=== PATIENT | female | born 1965 | race African-American/Black ===

== ENCOUNTER 2019-01-02 19:53 | Emergency (ER) | payer BC | END 2019-01-02 21:00 | disposition left against medical advice (07) | LOC: ER 20:59 | DX: Z53.21 Procedure and treatment not carried out due to patient leaving prior to being seen by health care provider (principal) ==

== ENCOUNTER 2022-05-03 06:30 | Inpatient (IN) | payer BC ==
[2022-05-03] VITALS (29 sets, daily range): BP systolic 78–110; BP diastolic 45–69
[~2022-05-03] VITALS: Ht 170.2 cm; Wt 64.9 kg
[2022-05-03] MEDS ORDERED: SODIUM CHLORIDE 0.9% 1,000 ML IV ONE (07:00)
[2022-05-03 08:03] LABS: HEMATOCRIT. 28.6 % (36.0-48.0); HEMOGLOBIN. 8.6 g/dL (12.0-16.0); MEAN CORPUSCULAR HEMOGLOBIN 25.5 pg (28.0-32.0); MEAN CORPUSCULAR VOLUME 84.6 fL (81.0-99.0); MEAN PLATELET VOLUME 9.5 fl (7.4-10.4); PLATELET 80 x1000/uL (130-400); RED BLOOD CELL COUNT 3.38 mill/uL (4.2-5.4); RED CELL DISTRIBUTION WIDTH 27.1 % (11.6-14.6)
[2022-05-03 08:05] LABS: CHLORIDE 115 mEq/L (98-107)
[2022-05-03] MEDS ORDERED: SODIUM CHLORIDE 0.9% 1000ML BAG (SEPSIS BOLUS) IV ONE (08:30)
[2022-05-03] MEDS ORDERED: VANCOMYCIN 1G PREMIX 200 ML IV ONE (08:30)
[2022-05-03] MEDS ORDERED: PIPERACILLIN/TAZ 3.375G PREMIX 50 ML IV ONE (08:30)
[2022-05-03] MEDS ORDERED: DEXTROSE 50% WATER 50ML SYRINGE IV ONE (08:30)
[2022-05-03 08:35] LABS: INR 1.4; PROTHROMBIN TIME 14.8 sec (9.6-11.0)
[2022-05-03 08:42] LABS: NUCLEATED RED BLOOD CELLS 12 /100 WBC; PLATELET ESTIMATE DECREASED
[2022-05-03] MEDS ORDERED: LIDOCAINE HCL/PF 1% 10 MG/ML 5ML VIAL ONE (09:45)
[2022-05-03] MEDS ORDERED: DOCUSATE SODIUM 100MG CAPSULE PO PRN (10:00)
[2022-05-03] MEDS ORDERED: HYDROCODONE/ACETAMINOPHEN 5/325MG TABLET PO PRN (10:00)
[2022-05-03] MEDS ORDERED: ENOXAPARIN 40MG/0.4ML SYR SUBCUT SCH (10:00)
[2022-05-03] MEDS ORDERED: MORPHINE SULFATE 2 MG/ML CPJ (NOT FOR IM USE) IV PRN (10:00)
[2022-05-03] MEDS ORDERED: NA PHOS,M-B/NA PHOS,DI-BA ENEMA 118ML PR PRN (10:00)
[2022-05-03] MEDS ORDERED: CLONIDINE 0.1MG TABLET PO PRN (10:00)
[2022-05-03] MEDS ORDERED: ACETAMINOPHEN 325MG TABLET PO PRN (10:00)
[2022-05-03] MEDS ORDERED: GUAIFENESIN 200MG/10ML SUGAR FREE UDC PO PRN (10:00)
[2022-05-03] MEDS ORDERED: MAGNESIUM/ALUMINUM HYDROXIDE/SIMETHICONE 30ML UDC PO PRN (10:00)
[2022-05-03] MEDS ORDERED: DIPHENHYDRAMINE 50MG/ML VIAL IV PRN (10:00)
[2022-05-03] MEDS ORDERED: IPRATROPIUM/ALBUTEROL 0.5-3(2.5)MG/3ML NEB NEB PRN (10:00)
[2022-05-03] MEDS ORDERED: NOREPINEPHRINE 8MG/250ML PMX 250 ML IV STA (11:16)
[2022-05-03 11:59] LABS: BG BASE EXCESS -8.2 mmol/L (-2.0-2.0); BG CARBOXYHEMOGLOBIN 0.9 % (0.5-1.5); BG DEOXYHEMOGLOBIN 2.3 % (0.0-5.0); BG FRACTION INSPIRED OXYGEN 21; BG HCO3 ACT 16.8 mmol/L (22.0-26.0); BG METHEMOGLOBIN 0.3 % (0.0-1.5); BG OXYGEN SATURATION 97.7 % (92.0-98.5); BG OXYHEMOGLOBIN 96.5 % (94.0-97.0); BG PCO2 31.6 mmHg (35.0-45.0); BG PH 7.343 (7.350-7.450); BG PO2 120.7 mmHg (75.0-100.0); BG SAMPLE SITE LEFT BRACHIAL; BG TOTAL HEMOGLOBIN 6.3 g/dL (12.0-18.0); BG VENT MODE ROOM AIR
[2022-05-03 13:05] LABS: CLARITY URINE CLEAR (CLEAR); COLOR URINE YELLOW (YELLOW); KETONES URINE NEGATIVE (NEGATIVE); LEUKOCYTE ESTERASE URINE NEGATIVE (NEGATIVE); NITRITE URINE NEGATIVE (NEGATIVE); OCCULT BLOOD URINE NEGATIVE (NEGATIVE); PROTEIN URINE 1+ (NEGATIVE); SPECIFIC GRAVITY URINE 1.013 (1.005-1.030); UROBILINOGEN URINE 0.2 E.U./dL (0.2-1.0)
[2022-05-03] MEDS ORDERED: PIPERACILLIN/TAZOBACTAM 3.375 G in DEXTROSE 5% WATER 50 ML IV SCH (15:00)
[2022-05-03] MEDS: SODIUM BICARBONATE 100 MEQ in DEXTROSE 5% WATER 1,000 ML IV SCH (15:52)
[2022-05-03] MEDS: DEXT 5%/0.45% NACL 1000ML 1,000 ML IV SCH (15:52)
[2022-05-03] MEDS: PIPERACILLIN/TAZOBACTAM 3.375 G in DEXTROSE 5% WATER 50 ML IV SCH (15:52)
[2022-05-03] MEDS ORDERED: NALOXONE HCL 0.4MG/ML VIAL IV PRN (16:00)
[2022-05-03 16:48] LABS: TOTAL IRON BINDING CAPACITY 230 ug/dL (250-450)
[2022-05-03] MEDS: NOREPINEPHRINE 32 MG in DEXT 5% WATER 218 ML IV PRN (16:53)
[2022-05-03 18:24] LABS: FOLIC ACID (FOLATE) SERUM >20 ng/mL ng/mL (>5.38); VITAMIN B12 SERUM >2000 pg/mL pg/mL (211-911)
[2022-05-03 20:42] LABS: FERRITIN 822 ng/mL (10-291)
[2022-05-04] VITALS (91 sets, daily range): BP systolic 84–132; BP diastolic 52–83
[2022-05-04] MEDS: PIPERACILLIN/TAZOBACTAM 3.375 G in DEXTROSE 5% WATER 50 ML IV SCH ×4 (00:08→22:06)
[2022-05-04] MEDS: DEXT 5%/0.45% NACL 1000ML 1,000 ML IV SCH ×2 (03:42→23:15)
[2022-05-04 04:31] LABS: HEMATOCRIT. 22.2 % (36.0-48.0); MEAN CORPUSCULAR HEMOGLOBIN 26.1 pg (28.0-32.0); MEAN CORPUSCULAR VOLUME 83.1 fL (81.0-99.0); MEAN PLATELET VOLUME 8.8 fl (7.4-10.4); PLATELET 106 x1000/uL (130-400); RED BLOOD CELL COUNT 2.68 mill/uL (4.2-5.4); RED CELL DISTRIBUTION WIDTH 28.1 % (11.6-14.6)
[2022-05-04 04:36] LABS: CHLORIDE 116 mEq/L (98-107)
[2022-05-04 05:29] LABS: NUCLEATED RED BLOOD CELLS 3 /100 WBC
[2022-05-04 05:30] LABS: PLATELET ESTIMATE DECREASED
[2022-05-04 10:02] LABS: T4 FREE 0.91 ng/dL (0.76-1.46)
[2022-05-04] MEDS: METOCLOPRAMIDE HCL 10MG/2ML VIAL IV SCH ×3 (12:32→23:15)
[2022-05-04] MEDS: NOREPINEPHRINE 32 MG in DEXT 5% WATER 218 ML IV PRN (12:57)
[2022-05-04] MEDS: SODIUM BICARBONATE 100 MEQ in DEXTROSE 5% WATER 1,000 ML IV SCH (14:51)
[2022-05-04 15:08] LABS: CREATINE KINASE MB FRACTION 2.6 ng/mL (0.5-3.6)
[2022-05-04 23:21] LABS: HEMATOCRIT 26.3 % (36.0-48.0); HEMOGLOBIN 8.2 g/dL (12.0-16.0)
[2022-05-05] VITALS (99 sets, daily range): BP systolic 54–141; BP diastolic 29–91
[2022-05-05 05:12] LABS: HEMATOCRIT. 27.3 % (36.0-48.0); HEMOGLOBIN. 8.6 g/dL (12.0-16.0); MEAN CORPUSCULAR HEMOGLOBIN 26.1 pg (28.0-32.0); MEAN CORPUSCULAR VOLUME 82.4 fL (81.0-99.0); MEAN PLATELET VOLUME 8.5 fl (7.4-10.4); PLATELET 88 x1000/uL (130-400); RED BLOOD CELL COUNT 3.31 mill/uL (4.2-5.4); RED CELL DISTRIBUTION WIDTH 26.2 % (11.6-14.6)
[2022-05-05 05:54] LABS: CREATINE KINASE MB FRACTION 1.5 ng/mL (0.5-3.6)
[2022-05-05] MEDS: METOCLOPRAMIDE HCL 10MG/2ML VIAL IV SCH ×3 (06:00→18:00)
[2022-05-05] MEDS: PIPERACILLIN/TAZOBACTAM 3.375 G in DEXTROSE 5% WATER 50 ML IV SCH ×3 (06:05→22:14)
[2022-05-05] MEDS: MEGESTROL ACETATE 400 MG/10 ML UDC PO SCH (08:46)
[2022-05-05] MEDS: SODIUM BICARBONATE 100 MEQ in DEXTROSE 5% WATER 1,000 ML IV SCH ×2 (09:00→11:05)
[2022-05-05] MEDS: NOREPINEPHRINE 32 MG in DEXT 5% WATER 218 ML IV PRN (11:53)
[2022-05-05] MEDS: KCL 20MEQ/100ML PREMIX 100 ML IV SCH ×2 (11:53→13:42)
[2022-05-05 12:11] LABS: PLATELET ESTIMATE DECREASED
[2022-05-05] MEDS: DEXT 5%/0.45% NACL 1000ML 1,000 ML IV SCH (19:42)
[2022-05-06] VITALS (94 sets, daily range): BP systolic 53–143; BP diastolic 22–102
[2022-05-06] MEDS: METOCLOPRAMIDE HCL 10MG/2ML VIAL IV SCH ×4 (05:39→18:00)
[2022-05-06] MEDS: LEVOTHYROXINE SODIUM 88MCG TABLET PO SCH (05:39)
[2022-05-06] MEDS: PIPERACILLIN/TAZOBACTAM 3.375 G in DEXTROSE 5% WATER 50 ML IV SCH ×3 (05:39→21:30)
[2022-05-06 05:50] LABS: HEMATOCRIT. 30.3 % (36.0-48.0); HEMOGLOBIN. 9.5 g/dL (12.0-16.0); MEAN CORPUSCULAR HEMOGLOBIN 25.4 pg (28.0-32.0); MEAN CORPUSCULAR VOLUME 80.8 fL (81.0-99.0); MEAN PLATELET VOLUME 8.7 fl (7.4-10.4); PLATELET 77 x1000/uL (130-400); RED BLOOD CELL COUNT 3.75 mill/uL (4.2-5.4); RED CELL DISTRIBUTION WIDTH 25.7 % (11.6-14.6)
[2022-05-06] MEDS: NOREPINEPHRINE 32 MG in DEXT 5% WATER 218 ML IV PRN (08:08)
[2022-05-06] MEDS ORDERED: POTASSIUM CHLORIDE INJ 40 MEQ in DEXT 5% WATER 500 ML IV NR (09:00)
[2022-05-06] MEDS: SODIUM BICARBONATE 100 MEQ in DEXTROSE 5% WATER 1,000 ML IV SCH (09:19)
[2022-05-06] MEDS: MEGESTROL ACETATE 400 MG/10 ML UDC PO SCH (09:21)
[2022-05-06 10:16] LABS: PLATELET ESTIMATE DECREASED
[2022-05-06] MEDS: MIDODRINE HCL 5MG TABLET PO SCH ×2 (13:23→17:37)
[2022-05-06] MEDS ORDERED: MORPHINE SULFATE 2 MG/ML CPJ (NOT FOR IM USE) IV NR (14:22)
[2022-05-06] MEDS: FERROUS SULFATE 325MG TABLET PO SCH (17:37)
[2022-05-06] MEDS: DEXT 5%/0.45% NACL 1000ML 1,000 ML IV SCH (17:38)
[2022-05-06] MEDS: ONDANSETRON HCL 4MG/2ML INJ IV PRN (18:53)
[2022-05-07] VITALS (96 sets, daily range): BP systolic 64–117; BP diastolic 40–93
[2022-05-07] MEDS: METOCLOPRAMIDE HCL 10MG/2ML VIAL IV SCH ×5 (00:19→17:23)
[2022-05-07] MEDS: ONDANSETRON HCL 4MG/2ML INJ IV PRN (02:23)
[2022-05-07] MEDS: NOREPINEPHRINE 32 MG in DEXT 5% WATER 218 ML IV PRN ×2 (03:19→15:24)
[2022-05-07 05:49] LABS: HEMATOCRIT. 33.8 % (36.0-48.0); HEMOGLOBIN. 10.5 g/dL (12.0-16.0); MEAN CORPUSCULAR HEMOGLOBIN 25.2 pg (28.0-32.0); MEAN CORPUSCULAR VOLUME 80.9 fL (81.0-99.0); MEAN PLATELET VOLUME 8.6 fl (7.4-10.4); PLATELET 55 x1000/uL (130-400); RED BLOOD CELL COUNT 4.18 mill/uL (4.2-5.4); RED CELL DISTRIBUTION WIDTH 26.1 % (11.6-14.6)
[2022-05-07] MEDS: LEVOTHYROXINE SODIUM 88MCG TABLET PO SCH (06:04)
[2022-05-07] MEDS: PIPERACILLIN/TAZOBACTAM 3.375 G in DEXTROSE 5% WATER 50 ML IV SCH ×3 (06:04→21:33)
[2022-05-07] MEDS: SODIUM BICARBONATE 100 MEQ in DEXTROSE 5% WATER 1,000 ML IV SCH (06:36)
[2022-05-07] MEDS: MIDODRINE HCL 5MG TABLET PO SCH ×3 (07:59→12:36)
[2022-05-07] MEDS: MEGESTROL ACETATE 400 MG/10 ML UDC PO SCH ×2 (07:59→09:38)
[2022-05-07] MEDS: FERROUS SULFATE 325MG TABLET PO SCH ×3 (07:59→17:25)
[2022-05-07] MEDS ORDERED: LIDOCAINE HCL 1% 10 MG/ML 10ML VIAL ONE (08:09)
[2022-05-07 08:27] LABS: PLATELET ESTIMATE DECREASED
[2022-05-07 10:12] LABS: BG BASE EXCESS -5.3 mmol/L (-2.0-2.0); BG CARBOXYHEMOGLOBIN 0.3 % (0.5-1.5); BG DEOXYHEMOGLOBIN 2.1 % (0.0-5.0); BG HCO3 ACT 18.4 mmol/L (22.0-26.0); BG METHEMOGLOBIN 0.1 % (0.0-1.5); BG OXYGEN SATURATION 97.9 % (92.0-98.5); BG OXYHEMOGLOBIN 97.5 % (94.0-97.0); BG PCO2 29.6 mmHg (35.0-45.0); BG PH 7.412 (7.350-7.450); BG PO2 125.5 mmHg (75.0-100.0); BG SAMPLE SITE RIGHT RADIAL; BG TOTAL HEMOGLOBIN 9.9 g/dL (12.0-18.0); BG VENT MODE ROOM AIR
[2022-05-07] MEDS: DEXT 5%/0.45% NACL 1000ML 1,000 ML IV SCH (10:40)
[2022-05-07] MEDS ORDERED: MIDODRINE HCL 5MG TABLET PO SCH (17:00)
[2022-05-08] VITALS (84 sets, daily range): BP systolic 63–131; BP diastolic 5–95
[2022-05-08] MEDS: DEXT 5%/0.45% NACL 1000ML 1,000 ML IV SCH ×2 (00:13→14:05)
[2022-05-08] MEDS: NOREPINEPHRINE 32 MG in DEXT 5% WATER 218 ML IV PRN ×2 (00:16→16:03)
[2022-05-08 05:11] LABS: HEMATOCRIT. 34.7 % (36.0-48.0); HEMOGLOBIN. 10.9 g/dL (12.0-16.0); MEAN CORPUSCULAR HEMOGLOBIN 25.7 pg (28.0-32.0); MEAN CORPUSCULAR VOLUME 81.6 fL (81.0-99.0); MEAN PLATELET VOLUME 8.2 fl (7.4-10.4); RED BLOOD CELL COUNT 4.25 mill/uL (4.2-5.4); RED CELL DISTRIBUTION WIDTH 25.3 % (11.6-14.6)
[2022-05-08 05:41] LABS: PLATELET 36 x1000/uL (130-400)
[2022-05-08] MEDS: PIPERACILLIN/TAZOBACTAM 3.375 G in DEXTROSE 5% WATER 50 ML IV SCH ×2 (06:00→14:04)
[2022-05-08] MEDS: METOCLOPRAMIDE HCL 10MG/2ML VIAL IV SCH ×5 (06:02→23:45)
[2022-05-08] MEDS: LEVOTHYROXINE SODIUM 88MCG TABLET PO SCH (06:02)
[2022-05-08 08:49] LABS: PLATELET ESTIMATE MARKEDLY DECREASED
[2022-05-08] MEDS: FERROUS SULFATE 325MG TABLET PO SCH ×2 (08:55→16:40)
[2022-05-08] MEDS: LACTOBACILLUS GG CAPSULE PO SCH (08:55)
[2022-05-08] MEDS: FOLIC ACID 1MG TABLET PO SCH (08:55)
[2022-05-08] MEDS: MIDODRINE HCL 5MG TABLET PO SCH ×3 (08:55→16:40)
[2022-05-08] MEDS: THIAMINE HCL 100MG TABLET PO SCH (08:56)
[2022-05-08 17:21] LABS: HEMATOCRIT. 36.7 % (36.0-48.0); HEMOGLOBIN. 11.3 g/dL (12.0-16.0); MEAN CORPUSCULAR HEMOGLOBIN 25.4 pg (28.0-32.0); MEAN CORPUSCULAR VOLUME 82.8 fL (81.0-99.0); MEAN PLATELET VOLUME 8.3 fl (7.4-10.4); RED BLOOD CELL COUNT 4.43 mill/uL (4.2-5.4); RED CELL DISTRIBUTION WIDTH 25.9 % (11.6-14.6)
[2022-05-08 17:37] LABS: PLATELET 27 x1000/uL (130-400)
[2022-05-08] MEDS: MORPHINE SULFATE 2 MG/ML CPJ (NOT FOR IM USE) IV PRN (18:59)
[2022-05-09] VITALS (73 sets, daily range): BP systolic 82–120; BP diastolic 23–89
[2022-05-09 00:41] LABS: PLATELET ESTIMATE DECREASED
[2022-05-09] MEDS: LEVOTHYROXINE SODIUM 88MCG TABLET PO SCH (05:33)
[2022-05-09] MEDS: METOCLOPRAMIDE HCL 10MG/2ML VIAL IV SCH ×3 (05:35→17:43)
[2022-05-09 05:37] LABS: BASOPHILS % 0.1 % (0.0-2.0); EOSINOPHILS % 0.1 % (0.0-5.0); HEMATOCRIT. 34.1 % (36.0-48.0); HEMOGLOBIN. 10.6 g/dL (12.0-16.0); LYMPHOCYTES % 7.3 % (20.0-50.0); MEAN CORPUSCULAR HEMOGLOBIN 25.4 pg (28.0-32.0); MEAN CORPUSCULAR VOLUME 81.6 fL (81.0-99.0); MEAN PLATELET VOLUME 9.2 fl (7.4-10.4); MONOCYTES % 5.6 % (2.0-8.0); NEUTROPHILS % 86.9 % (40.0-76.0); RED BLOOD CELL COUNT 4.18 mill/uL (4.2-5.4); RED CELL DISTRIBUTION WIDTH 24.8 % (11.6-14.6)
[2022-05-09] MEDS: NOREPINEPHRINE 32 MG in DEXT 5% WATER 218 ML IV PRN ×2 (05:38→18:26)
[2022-05-09 06:10] LABS: PLATELET 31 x1000/uL (130-400)
[2022-05-09] MEDS: DEXT 5%/0.45% NACL 1000ML 1,000 ML IV SCH ×2 (08:05→21:00)
[2022-05-09] MEDS: MIDODRINE HCL 5MG TABLET PO SCH ×3 (09:00→17:24)
[2022-05-09] MEDS: LACTOBACILLUS GG CAPSULE PO SCH (09:00)
[2022-05-09] MEDS: THIAMINE HCL 100MG TABLET PO SCH (09:00)
[2022-05-09] MEDS: FERROUS SULFATE 325MG TABLET PO SCH ×2 (09:00→17:28)
[2022-05-09] MEDS: FOLIC ACID 1MG TABLET PO SCH (09:00)
[2022-05-09] MEDS ORDERED: NALOXONE HCL 0.4MG/ML VIAL IV PRN (09:45)
[2022-05-09] MEDS ORDERED: POTASSIUM CHLORIDE 20MEQ TABLET SR PO NR (09:45)
[2022-05-09] MEDS: FLUDROCORTISONE ACETATE 0.1MG TABLET PO SCH (12:20)
[2022-05-09] MEDS ORDERED: FLUCONAZOLE 200 MG/100ML BAG 100 ML IV SCH (13:00)
[2022-05-09] MEDS: ONDANSETRON HCL 4MG/2ML INJ IV PRN (17:29)
[2022-05-10] VITALS (108 sets, daily range): BP systolic 74–120; BP diastolic 39–86
[2022-05-10] MEDS: METOCLOPRAMIDE HCL 10MG/2ML VIAL IV SCH ×4 (01:02→17:12)
[2022-05-10] MEDS: DEXT 5%/0.45% NACL 1000ML 1,000 ML IV SCH ×2 (05:52→22:00)
[2022-05-10 06:40] LABS: HEMOGLOBIN. 8.6 g/dL (12.0-16.0); MEAN CORPUSCULAR HEMOGLOBIN 25.7 pg (28.0-32.0); MEAN CORPUSCULAR VOLUME 80.7 fL (81.0-99.0); MEAN PLATELET VOLUME 9.4 fl (7.4-10.4); RED BLOOD CELL COUNT 3.34 mill/uL (4.2-5.4); RED CELL DISTRIBUTION WIDTH 24.1 % (11.6-14.6)
[2022-05-10 07:00] LABS: CHLORIDE 107 mEq/L (98-107)
[2022-05-10 07:11] LABS: PLATELET 27 x1000/uL (130-400)
[2022-05-10] MEDS ORDERED: IOHEXOL-300 50 ML BOTTLE IV ONE (08:55)
[2022-05-10] MEDS ORDERED: LIDOCAINE HCL 1% 10 MG/ML 10ML VIAL ONE (08:55)
[2022-05-10] MEDS ORDERED: IOHEXOL-300 100 ML BOTTLE ONE (08:56)
[2022-05-10] MEDS: MIDODRINE HCL 5MG TABLET PO SCH ×3 (09:00→17:12)
[2022-05-10] MEDS: NOREPINEPHRINE 32 MG in DEXT 5% WATER 218 ML IV PRN (09:11)
[2022-05-10] MEDS ORDERED: POTASSIUM CHLORIDE 20MEQ TABLET SR PO NR (09:15)
[2022-05-10 09:40] LABS: PLATELET ESTIMATE MARKEDLY DECREASED
[2022-05-10] MEDS: LACTOBACILLUS GG CAPSULE PO SCH (11:41)
[2022-05-10] MEDS: THIAMINE HCL 100MG TABLET PO SCH (11:41)
[2022-05-10] MEDS: FOLIC ACID 1MG TABLET PO SCH (11:41)
[2022-05-10] MEDS: FERROUS SULFATE 325MG TABLET PO SCH ×2 (11:41→17:12)
[2022-05-10] MEDS: FLUDROCORTISONE ACETATE 0.1MG TABLET PO SCH (11:41)
[2022-05-10] MEDS: LEVOTHYROXINE SODIUM 88MCG TABLET PO SCH (11:41)
[2022-05-10] MEDS: FLUCONAZOLE 100 MG/50ML BAG 50 ML IV SCH (13:37)
[2022-05-10] MEDS: PYRIDOSTIGMINE BROMIDE 60MG TABLET PO SCH (17:12)
[2022-05-10] MEDS: MORPHINE SULFATE 2 MG/ML CPJ (NOT FOR IM USE) IV PRN ×2 (17:30→22:20)
[2022-05-11] VITALS (82 sets, daily range): BP systolic 60–126; BP diastolic 42–77
[2022-05-11] MEDS: METOCLOPRAMIDE HCL 10MG/2ML VIAL IV SCH ×4 (00:16→17:52)
[2022-05-11] MEDS: NOREPINEPHRINE 32 MG in DEXT 5% WATER 218 ML IV PRN (04:30)
[2022-05-11 05:24] LABS: BASOPHILS % 0.3 % (0.0-2.0); HEMATOCRIT. 30.6 % (36.0-48.0); HEMOGLOBIN. 9.7 g/dL (12.0-16.0); LYMPHOCYTES % 12.2 % (20.0-50.0); MEAN CORPUSCULAR HEMOGLOBIN 25.6 pg (28.0-32.0); MEAN CORPUSCULAR VOLUME 81.2 fL (81.0-99.0); MEAN PLATELET VOLUME 9.1 fl (7.4-10.4); MONOCYTES % 2.9 % (2.0-8.0); NEUTROPHILS % 84.6 % (40.0-76.0); RED BLOOD CELL COUNT 3.77 mill/uL (4.2-5.4); RED CELL DISTRIBUTION WIDTH 24.8 % (11.6-14.6)
[2022-05-11 05:41] LABS: CHLORIDE 108 mEq/L (98-107)
[2022-05-11 05:59] LABS: PLATELET 42 x1000/uL (130-400)
[2022-05-11] MEDS: LEVOTHYROXINE SODIUM 88MCG TABLET PO SCH (06:08)
[2022-05-11] MEDS: MORPHINE SULFATE 2 MG/ML CPJ (NOT FOR IM USE) IV PRN (06:12)
[2022-05-11] MEDS ORDERED: POTASSIUM CHLORIDE INJ 40 MEQ in DEXT 5% WATER 250 ML IV ONE (08:00)
[2022-05-11] MEDS: DEXT 5%/0.45% NACL 1000ML 1,000 ML IV SCH ×2 (08:57→20:33)
[2022-05-11] MEDS: FERROUS SULFATE 325MG TABLET PO SCH ×2 (08:57→17:01)
[2022-05-11] MEDS: FOLIC ACID 1MG TABLET PO SCH (08:58)
[2022-05-11] MEDS: THIAMINE HCL 100MG TABLET PO SCH (08:58)
[2022-05-11] MEDS: PYRIDOSTIGMINE BROMIDE 60MG TABLET PO SCH ×2 (08:58→17:01)
[2022-05-11] MEDS: MIDODRINE HCL 5MG TABLET PO SCH ×3 (08:58→17:01)
[2022-05-11] MEDS: FLUDROCORTISONE ACETATE 0.1MG TABLET PO SCH ×2 (08:58→20:32)
[2022-05-11] MEDS: LACTOBACILLUS GG CAPSULE PO SCH (08:58)
[2022-05-11] MEDS: FLUCONAZOLE 100 MG/50ML BAG 50 ML IV SCH (13:33)
[2022-05-11] MEDS ORDERED: FLUDROCORTISONE ACETATE 0.1MG TABLET PO SCH (20:15)
[2022-05-12] VITALS (71 sets, daily range): BP systolic 74–130; BP diastolic 21–81
[2022-05-12] MEDS: NOREPINEPHRINE 32 MG in DEXT 5% WATER 218 ML IV PRN ×2 (02:06→23:47)
[2022-05-12] MEDS: METOCLOPRAMIDE HCL 10MG/2ML VIAL IV SCH ×5 (06:00→23:46)
[2022-05-12] MEDS: LEVOTHYROXINE SODIUM 88MCG TABLET PO SCH (06:29)
[2022-05-12] MEDS: LACTOBACILLUS GG CAPSULE PO SCH (10:09)
[2022-05-12] MEDS: PYRIDOSTIGMINE BROMIDE 60MG TABLET PO SCH ×2 (10:09→17:02)
[2022-05-12] MEDS: FERROUS SULFATE 325MG TABLET PO SCH ×2 (10:09→17:02)
[2022-05-12] MEDS: THIAMINE HCL 100MG TABLET PO SCH (10:09)
[2022-05-12] MEDS: FLUDROCORTISONE ACETATE 0.1MG TABLET PO SCH ×2 (10:10→17:02)
[2022-05-12] MEDS: MIDODRINE HCL 5MG TABLET PO SCH ×3 (10:10→17:03)
[2022-05-12] MEDS: FOLIC ACID 1MG TABLET PO SCH (10:11)
[2022-05-12] MEDS: DEXT 5%/0.45% NACL 1000ML 1,000 ML IV SCH ×2 (11:16→22:34)
[2022-05-12] MEDS: FLUCONAZOLE 100 MG/50ML BAG 50 ML IV SCH (13:31)
[2022-05-12] MEDS: CEFEPIME 1,000 MG in DEXTROSE 5% WATER 50 ML IV SCH (17:31)
[2022-05-13] VITALS (89 sets, daily range): BP systolic 73–137; BP diastolic 49–86
[2022-05-13 05:42] LABS: HEMATOCRIT. 27.4 % (36.0-48.0); HEMOGLOBIN. 8.7 g/dL (12.0-16.0); MEAN CORPUSCULAR HEMOGLOBIN 25.8 pg (28.0-32.0); MEAN CORPUSCULAR VOLUME 81.3 fL (81.0-99.0); MEAN PLATELET VOLUME 9.6 fl (7.4-10.4); PLATELET 60 x1000/uL (130-400); RED BLOOD CELL COUNT 3.37 mill/uL (4.2-5.4); RED CELL DISTRIBUTION WIDTH 24.6 % (11.6-14.6)
[2022-05-13] MEDS: LEVOTHYROXINE SODIUM 88MCG TABLET PO SCH (06:27)
[2022-05-13 06:28] LABS: CHLORIDE 109 mEq/L (98-107)
[2022-05-13] MEDS: CEFEPIME 1,000 MG in DEXTROSE 5% WATER 50 ML IV SCH (06:28)
[2022-05-13] MEDS: METOCLOPRAMIDE HCL 10MG/2ML VIAL IV SCH ×3 (06:28→17:26)
[2022-05-13] MEDS ORDERED: POTASSIUM CHLORIDE 20MEQ/PACKET PO NR (06:30)
[2022-05-13 06:42] LABS: T4 FREE 0.99 ng/dL (0.76-1.46)
[2022-05-13] MEDS: THIAMINE HCL 100MG TABLET PO SCH (09:54)
[2022-05-13] MEDS: FOLIC ACID 1MG TABLET PO SCH (09:54)
[2022-05-13] MEDS: MIDODRINE HCL 5MG TABLET PO SCH ×3 (09:54→16:03)
[2022-05-13] MEDS: FLUDROCORTISONE ACETATE 0.1MG TABLET PO SCH ×2 (09:54→16:02)
[2022-05-13] MEDS: FERROUS SULFATE 325MG TABLET PO SCH ×2 (09:54→16:03)
[2022-05-13] MEDS: PYRIDOSTIGMINE BROMIDE 60MG TABLET PO SCH ×2 (09:56→16:03)
[2022-05-13 10:02] LABS: PLATELET ESTIMATE MARKEDLY DECREASED
[2022-05-13] MEDS: LACTOBACILLUS GG CAPSULE PO SCH (10:24)
[2022-05-13] MEDS: MORPHINE SULFATE 2 MG/ML CPJ (NOT FOR IM USE) IV PRN (11:50)
[2022-05-13] MEDS: DEXT 5%/0.45% NACL 1000ML 1,000 ML IV SCH (12:02)
[2022-05-13] MEDS: FLUCONAZOLE 100 MG/50ML BAG 50 ML IV SCH (13:22)
[2022-05-13] MEDS: NOREPINEPHRINE 32 MG in DEXT 5% WATER 218 ML IV PRN (15:16)
[2022-05-13] MEDS: MEROPENEM 1,000 MG in SODIUM CHLORIDE 0.9% 100 ML IV SCH (16:02)
[2022-05-13] MEDS: VANCOMYCIN 750MG PREMIX 150 ML IV SCH ×2 (16:33→22:05)
[2022-05-13] MEDS: MICAFUNGIN 100 MG in SODIUM CHLORIDE 0.9% 100 ML IV SCH (16:34)
[2022-05-14] VITALS (57 sets, daily range): BP systolic 81–133; BP diastolic 37–87
[2022-05-14] MEDS: METOCLOPRAMIDE HCL 10MG/2ML VIAL IV SCH ×5 (00:27→23:35)
[2022-05-14] MEDS: DEXT 5%/0.45% NACL 1000ML 1,000 ML IV SCH ×2 (03:05→21:33)
[2022-05-14 06:16] LABS: HEMATOCRIT. 28.8 % (36.0-48.0); MEAN CORPUSCULAR HEMOGLOBIN 26.3 pg (28.0-32.0); MEAN CORPUSCULAR VOLUME 84.3 fL (81.0-99.0); PLATELET 80 x1000/uL (130-400); RED BLOOD CELL COUNT 3.41 mill/uL (4.2-5.4); RED CELL DISTRIBUTION WIDTH 24.5 % (11.6-14.6)
[2022-05-14] MEDS: MEROPENEM 1,000 MG in SODIUM CHLORIDE 0.9% 100 ML IV SCH (06:24)
[2022-05-14] MEDS: LEVOTHYROXINE SODIUM 88MCG TABLET PO SCH (06:24)
[2022-05-14] MEDS: VANCOMYCIN 750MG PREMIX 150 ML IV SCH ×3 (06:24→21:32)
[2022-05-14] MEDS: THIAMINE HCL 100MG TABLET PO SCH (09:00)
[2022-05-14] MEDS: MIDODRINE HCL 5MG TABLET PO SCH ×3 (09:00→17:04)
[2022-05-14] MEDS: FLUDROCORTISONE ACETATE 0.1MG TABLET PO SCH ×2 (09:00→17:04)
[2022-05-14] MEDS: PYRIDOSTIGMINE BROMIDE 60MG TABLET PO SCH ×2 (09:00→17:04)
[2022-05-14] MEDS: FOLIC ACID 1MG TABLET PO SCH (09:00)
[2022-05-14] MEDS: LACTOBACILLUS GG CAPSULE PO SCH (09:00)
[2022-05-14] MEDS: FERROUS SULFATE 325MG TABLET PO SCH ×2 (09:00→17:04)
[2022-05-14 09:37] LABS: PLATELET ESTIMATE DECREASED
[2022-05-14 10:22] LABS: CHLORIDE 113 mEq/L (98-107)
[2022-05-14 10:24] LABS: PHOSPHORUS 1.8 mg/dL (2.5-4.9)
[2022-05-14] MEDS: MICAFUNGIN 100 MG in SODIUM CHLORIDE 0.9% 100 ML IV SCH (16:00)
[2022-05-14] MEDS: MEROPENEM 2,000 MG in SODIUM CHLORIDE 0.9% 100 ML IV SCH ×2 (17:03→21:31)
[2022-05-14] MEDS ORDERED: HYDROCODONE/ACETAMINOPHEN 5/325MG TABLET PO PRN (21:00)
[2022-05-14] MEDS: MORPHINE SULFATE 2 MG/ML CPJ (NOT FOR IM USE) IV PRN (21:31)
[2022-05-14] MEDS: ONDANSETRON HCL 4MG/2ML INJ IV PRN (21:49)
[2022-05-15] VITALS (96 sets, daily range): BP systolic 68–115; BP diastolic 44–88
[2022-05-15 05:31] LABS: HEMATOCRIT. 24.5 % (36.0-48.0); HEMOGLOBIN. 7.9 g/dL (12.0-16.0); MEAN CORPUSCULAR HEMOGLOBIN 26.1 pg (28.0-32.0); MEAN PLATELET VOLUME 9.6 fl (7.4-10.4); PLATELET 83 x1000/uL (130-400); RED BLOOD CELL COUNT 3.03 mill/uL (4.2-5.4); RED CELL DISTRIBUTION WIDTH 23.9 % (11.6-14.6)
[2022-05-15] MEDS: LEVOTHYROXINE SODIUM 88MCG TABLET PO SCH (05:55)
[2022-05-15] MEDS: VANCOMYCIN 750MG PREMIX 150 ML IV SCH (05:55)
[2022-05-15] MEDS: MEROPENEM 2,000 MG in SODIUM CHLORIDE 0.9% 100 ML IV SCH ×3 (05:55→23:35)
[2022-05-15] MEDS: METOCLOPRAMIDE HCL 10MG/2ML VIAL IV SCH ×4 (05:55→23:36)
[2022-05-15 06:00] LABS: CHLORIDE 112 mEq/L (98-107)
[2022-05-15 06:14] LABS: VANCOMYCIN TROUGH 29.8 ug/mL (5.0-10.0)
[2022-05-15] MEDS ORDERED: POTASSIUM CHLORIDE 20MEQ/PACKET PO ONE (07:30)
[2022-05-15] MEDS: FOLIC ACID 1MG TABLET PO SCH (08:17)
[2022-05-15] MEDS: FERROUS SULFATE 325MG TABLET PO SCH ×2 (08:17→18:26)
[2022-05-15] MEDS: PYRIDOSTIGMINE BROMIDE 60MG TABLET PO SCH ×2 (08:17→22:03)
[2022-05-15] MEDS: THIAMINE HCL 100MG TABLET PO SCH (08:17)
[2022-05-15] MEDS: LACTOBACILLUS GG CAPSULE PO SCH (08:17)
[2022-05-15] MEDS: MIDODRINE HCL 5MG TABLET PO SCH ×3 (08:19→18:26)
[2022-05-15] MEDS: NOREPINEPHRINE 32 MG in DEXT 5% WATER 218 ML IV PRN ×2 (08:23→21:06)
[2022-05-15] MEDS ORDERED: POTASSIUM CHLORIDE 20MEQ TABLET SR PO SCH (08:45)
[2022-05-15] MEDS ORDERED: SODIUM CHLORIDE 0.9% 500 ML IV ONE (09:00)
[2022-05-15 10:51] LABS: PLATELET ESTIMATE DECREASED
[2022-05-15] MEDS: FLUDROCORTISONE ACETATE 0.1MG TABLET PO SCH ×2 (10:58→18:26)
[2022-05-15] MEDS ORDERED: DIATR MEGLU/DIATRIZOATE SOLN 30ML PO NR (14:00)
[2022-05-15] MEDS: MEROPENEM 1,000 MG in SODIUM CHLORIDE 0.9% 100 ML IV SCH (14:04)
[2022-05-15] MEDS: MICAFUNGIN 100 MG in SODIUM CHLORIDE 0.9% 100 ML IV SCH (20:42)
[2022-05-15] MEDS: DEXT 5%/0.45% NACL 1000ML 1,000 ML IV SCH (20:43)
[2022-05-15] MEDS: MORPHINE SULFATE 2 MG/ML CPJ (NOT FOR IM USE) IV PRN (22:17)
[2022-05-16] VITALS (53 sets, daily range): BP systolic 76–119; BP diastolic 43–86
[2022-05-16] MEDS ORDERED: IOHEXOL-300 100 ML BOTTLE ONE (05:06)
[2022-05-16 05:29] LABS: BASOPHILS % 0.1 % (0.0-2.0); HEMATOCRIT. 32.1 % (36.0-48.0); HEMOGLOBIN. 10.6 g/dL (12.0-16.0); LYMPHOCYTES % 7.6 % (20.0-50.0); MEAN CORPUSCULAR VOLUME 85.2 fL (81.0-99.0); MEAN PLATELET VOLUME 9.7 fl (7.4-10.4); MONOCYTES % 6.9 % (2.0-8.0); NEUTROPHILS % 85.4 % (40.0-76.0); PLATELET 97 x1000/uL (130-400); RED BLOOD CELL COUNT 3.77 mill/uL (4.2-5.4); RED CELL DISTRIBUTION WIDTH 23.3 % (11.6-14.6)
[2022-05-16 05:35] LABS: CHLORIDE 112 mEq/L (98-107)
[2022-05-16 05:43] LABS: PHOSPHORUS 1.8 mg/dL (2.5-4.9)
[2022-05-16 06:05] LABS: INR 1.3; PROTHROMBIN TIME 13.9 sec (9.6-11.0)
[2022-05-16] MEDS: MEROPENEM 2,000 MG in SODIUM CHLORIDE 0.9% 100 ML IV SCH ×3 (06:28→22:30)
[2022-05-16] MEDS: METOCLOPRAMIDE HCL 10MG/2ML VIAL IV SCH ×3 (06:28→17:08)
[2022-05-16] MEDS: LEVOTHYROXINE SODIUM 88MCG TABLET PO SCH (06:28)
[2022-05-16] MEDS ORDERED: DEXTROSE 50% WATER 50ML SYRINGE IV NR (06:45)
[2022-05-16] MEDS ORDERED: LIDOCAINE HCL/PF 1% 10 MG/ML 5ML VIAL ONE (07:07)
[2022-05-16] MEDS ORDERED: DEXT 10% WATER 1,000 ML IV SCH (07:30)
[2022-05-16] MEDS ORDERED: MAGNESIUM 2 G PREMIX 50 ML IV NR (07:45)
[2022-05-16] MEDS: MORPHINE SULFATE 2 MG/ML CPJ (NOT FOR IM USE) IV PRN ×2 (07:52→20:48)
[2022-05-16] MEDS ORDERED: POTASSIUM PHOS,M-BASIC-D-BASIC 30 MMOL in DEXT 5% WATER 500 ML IV NR (08:00)
[2022-05-16] MEDS ORDERED: POTASSIUM PHOS,M-BASIC-D-BASIC 30 MMOL in DEXT 5% WATER 500 ML IV ONE (08:30)
[2022-05-16] MEDS: LACTOBACILLUS GG CAPSULE PO SCH (09:14)
[2022-05-16] MEDS: PYRIDOSTIGMINE BROMIDE 60MG TABLET PO SCH ×2 (09:14→17:08)
[2022-05-16] MEDS: FERROUS SULFATE 325MG TABLET PO SCH ×2 (09:15→17:08)
[2022-05-16] MEDS: FLUDROCORTISONE ACETATE 0.1MG TABLET PO SCH ×2 (09:15→17:08)
[2022-05-16] MEDS: FOLIC ACID 1MG TABLET PO SCH (09:15)
[2022-05-16] MEDS: THIAMINE HCL 100MG TABLET PO SCH (09:15)
[2022-05-16] MEDS: MIDODRINE HCL 5MG TABLET PO SCH ×3 (09:15→17:09)
[2022-05-16] MEDS: MICAFUNGIN 100 MG in SODIUM CHLORIDE 0.9% 100 ML IV SCH (15:32)
[2022-05-17] VITALS (12 sets, daily range): BP systolic 73–95; BP diastolic 56–70
[2022-05-17] MEDS: METOCLOPRAMIDE HCL 10MG/2ML VIAL IV SCH ×4 (00:02→17:05)
[2022-05-17] MEDS: MORPHINE SULFATE 2 MG/ML CPJ (NOT FOR IM USE) IV PRN ×2 (00:03→21:39)
[2022-05-17] MEDS: MEROPENEM 2,000 MG in SODIUM CHLORIDE 0.9% 100 ML IV SCH ×3 (06:04→21:40)
[2022-05-17] MEDS: FLUDROCORTISONE ACETATE 0.1MG TABLET PO SCH ×2 (08:39→17:06)
[2022-05-17] MEDS: LEVOTHYROXINE SODIUM 88MCG TABLET PO SCH (08:39)
[2022-05-17] MEDS: FERROUS SULFATE 325MG TABLET PO SCH ×2 (08:39→17:06)
[2022-05-17] MEDS: THIAMINE HCL 100MG TABLET PO SCH (08:40)
[2022-05-17] MEDS: FOLIC ACID 1MG TABLET PO SCH (08:40)
[2022-05-17] MEDS: MIDODRINE HCL 5MG TABLET PO SCH ×3 (08:40→17:06)
[2022-05-17] MEDS: POTASSIUM CHLORIDE 20MEQ TABLET SR PO SCH (08:40)
[2022-05-17] MEDS: PYRIDOSTIGMINE BROMIDE 60MG TABLET PO SCH ×2 (08:40→17:06)
[2022-05-17] MEDS: LACTOBACILLUS GG CAPSULE PO SCH (08:43)
[2022-05-17] MEDS: MICAFUNGIN 100 MG in SODIUM CHLORIDE 0.9% 100 ML IV SCH (15:44)
[2022-05-18] VITALS (12 sets, daily range): BP systolic 42–113; BP diastolic 28–75
[2022-05-18] MEDS: METOCLOPRAMIDE HCL 10MG/2ML VIAL IV SCH ×4 (00:21→17:36)
[2022-05-18] MEDS: MORPHINE SULFATE 2 MG/ML CPJ (NOT FOR IM USE) IV PRN ×3 (01:13→21:28)
[2022-05-18] MEDS: MEROPENEM 2,000 MG in SODIUM CHLORIDE 0.9% 100 ML IV SCH ×3 (05:45→22:55)
[2022-05-18 07:12] LABS: CHLORIDE 115 mEq/L (98-107)
[2022-05-18 07:19] LABS: BASOPHILS % 0.1 % (0.0-2.0); HEMATOCRIT. 31.9 % (36.0-48.0); HEMOGLOBIN. 10.5 g/dL (12.0-16.0); LYMPHOCYTES % 18.8 % (20.0-50.0); MEAN CORPUSCULAR VOLUME 85.1 fL (81.0-99.0); MEAN PLATELET VOLUME 9.1 fl (7.4-10.4); MONOCYTES % 12.9 % (2.0-8.0); NEUTROPHILS % 68.2 % (40.0-76.0); PLATELET 84 x1000/uL (130-400); RED BLOOD CELL COUNT 3.75 mill/uL (4.2-5.4); RED CELL DISTRIBUTION WIDTH 23.4 % (11.6-14.6)
[2022-05-18 07:31] LABS: PHOSPHORUS 2.9 mg/dL (2.5-4.9)
[2022-05-18] MEDS ORDERED: DEXTROSE 50% WATER 50ML SYRINGE IV PRN (08:15)
[2022-05-18] MEDS: FERROUS SULFATE 325MG TABLET PO SCH ×2 (08:40→18:21)
[2022-05-18] MEDS: PYRIDOSTIGMINE BROMIDE 60MG TABLET PO SCH ×2 (08:41→18:21)
[2022-05-18] MEDS: POTASSIUM CHLORIDE 20MEQ TABLET SR PO SCH (08:41)
[2022-05-18] MEDS: LEVOTHYROXINE SODIUM 88MCG TABLET PO SCH (08:41)
[2022-05-18] MEDS: LACTOBACILLUS GG CAPSULE PO SCH (08:41)
[2022-05-18] MEDS: FLUDROCORTISONE ACETATE 0.1MG TABLET PO SCH ×2 (08:41→18:22)
[2022-05-18] MEDS: THIAMINE HCL 100MG TABLET PO SCH (08:42)
[2022-05-18] MEDS: MIDODRINE HCL 5MG TABLET PO SCH ×3 (08:42→18:21)
[2022-05-18] MEDS: FOLIC ACID 1MG TABLET PO SCH (08:47)
[2022-05-18] MEDS ORDERED: DEXT 5%/0.9% NACL 1,000 ML IV SCH (09:30)
[2022-05-18] MEDS ORDERED: SODIUM CHLORIDE 0.9% 500 ML IV ONE (09:30)
[2022-05-18] MEDS ORDERED: POTASSIUM CHLORIDE 20MEQ TABLET SR PO NR (09:30)
[2022-05-18] MEDS: MICAFUNGIN 100 MG in SODIUM CHLORIDE 0.9% 100 ML IV SCH (18:01)
[2022-05-19] VITALS (15 sets, daily range): BP systolic 84–106; BP diastolic 54–84
[2022-05-19] MEDS: METOCLOPRAMIDE HCL 10MG/2ML VIAL IV SCH ×4 (01:38→18:02)
[2022-05-19 06:36] LABS: BASOPHILS % 0.2 % (0.0-2.0); EOSINOPHILS % 0.1 % (0.0-5.0); HEMATOCRIT. 36.1 % (36.0-48.0); HEMOGLOBIN. 11.9 g/dL (12.0-16.0); LYMPHOCYTES % 18.4 % (20.0-50.0); MEAN CORPUSCULAR HEMOGLOBIN 27.8 pg (28.0-32.0); MEAN CORPUSCULAR VOLUME 84.5 fL (81.0-99.0); MEAN PLATELET VOLUME 9.6 fl (7.4-10.4); MONOCYTES % 12.4 % (2.0-8.0); NEUTROPHILS % 68.9 % (40.0-76.0); PLATELET 73 x1000/uL (130-400); RED BLOOD CELL COUNT 4.27 mill/uL (4.2-5.4); RED CELL DISTRIBUTION WIDTH 23.3 % (11.6-14.6)
[2022-05-19] MEDS: MEROPENEM 2,000 MG in SODIUM CHLORIDE 0.9% 100 ML IV SCH ×3 (06:40→22:18)
[2022-05-19 06:54] LABS: CHLORIDE 115 mEq/L (98-107)
[2022-05-19 07:15] LABS: PHOSPHORUS 2.3 mg/dL (2.5-4.9)
[2022-05-19] MEDS: LEVOTHYROXINE SODIUM 88MCG TABLET PO SCH (07:30)
[2022-05-19] MEDS: FLUDROCORTISONE ACETATE 0.1MG TABLET PO SCH ×2 (09:00→17:00)
[2022-05-19] MEDS: PYRIDOSTIGMINE BROMIDE 60MG TABLET PO SCH ×2 (09:00→17:00)
[2022-05-19] MEDS: FERROUS SULFATE 325MG TABLET PO SCH ×2 (09:00→17:00)
[2022-05-19] MEDS: THIAMINE HCL 100MG TABLET PO SCH (09:00)
[2022-05-19] MEDS: FOLIC ACID 1MG TABLET PO SCH (09:00)
[2022-05-19] MEDS: LACTOBACILLUS GG CAPSULE PO SCH (09:00)
[2022-05-19] MEDS: POTASSIUM CHLORIDE 20MEQ TABLET SR PO SCH (09:18)
[2022-05-19] MEDS: MIDODRINE HCL 5MG TABLET PO SCH ×3 (09:18→17:00)
[2022-05-19] MEDS ORDERED: SODIUM CHLORIDE 0.9% 500 ML IV SCH (09:30)
[2022-05-19] MEDS ORDERED: POTASSIUM PHOS,M-BASIC-D-BASIC 20 MMOL in DEXT 5% WATER 243.3333 ML IV SCH (10:00)
[2022-05-19] MEDS ORDERED: VANCOMYCIN 1,000 MG in DEXT 5% WATER 250 ML IV SCH (15:00)
[2022-05-19] MEDS: ONDANSETRON HCL 4MG/2ML INJ IV PRN (16:26)
[2022-05-19] MEDS: MICAFUNGIN 100 MG in SODIUM CHLORIDE 0.9% 100 ML IV SCH (16:29)
[2022-05-19] MEDS: MORPHINE SULFATE 2 MG/ML CPJ (NOT FOR IM USE) IV PRN ×2 (18:02→22:17)
[2022-05-20] VITALS (12 sets, daily range): BP systolic 81–103; BP diastolic 52–74
[2022-05-20] MEDS: METOCLOPRAMIDE HCL 10MG/2ML VIAL IV SCH ×4 (01:52→17:36)
[2022-05-20] MEDS: MEROPENEM 2,000 MG in SODIUM CHLORIDE 0.9% 100 ML IV SCH ×3 (05:53→22:09)
[2022-05-20] MEDS: ONDANSETRON HCL 4MG/2ML INJ IV PRN (05:55)
[2022-05-20] MEDS ORDERED: VANCOMYCIN 750MG PREMIX 150 ML IV SCH (06:00)
[2022-05-20] MEDS ORDERED: VANCOMYCIN 1,000 MG in DEXT 5% WATER 250 ML IV SCH (06:00)
[2022-05-20] MEDS ORDERED: SODIUM CHLORIDE 0.9% 250 ML IV ONE (06:30)
[2022-05-20 06:51] LABS: BASOPHILS % 0.2 % (0.0-2.0); EOSINOPHILS % 0.2 % (0.0-5.0); HEMATOCRIT. 36.3 % (36.0-48.0); HEMOGLOBIN. 11.6 g/dL (12.0-16.0); LYMPHOCYTES % 23.8 % (20.0-50.0); MEAN CORPUSCULAR HEMOGLOBIN 27.6 pg (28.0-32.0); MEAN CORPUSCULAR VOLUME 86.4 fL (81.0-99.0); MEAN PLATELET VOLUME 8.8 fl (7.4-10.4); MONOCYTES % 8.7 % (2.0-8.0); NEUTROPHILS % 67.1 % (40.0-76.0); PLATELET 59 x1000/uL (130-400); RED CELL DISTRIBUTION WIDTH 22.9 % (11.6-14.6)
[2022-05-20 07:42] LABS: CHLORIDE 115 mEq/L (98-107)
[2022-05-20] MEDS: POTASSIUM CHLORIDE 20MEQ TABLET SR PO SCH (08:20)
[2022-05-20] MEDS: PYRIDOSTIGMINE BROMIDE 60MG TABLET PO SCH ×2 (08:20→18:09)
[2022-05-20] MEDS: MIDODRINE HCL 5MG TABLET PO SCH ×3 (08:20→17:36)
[2022-05-20] MEDS: FERROUS SULFATE 325MG TABLET PO SCH ×2 (08:20→17:36)
[2022-05-20] MEDS: THIAMINE HCL 100MG TABLET PO SCH (08:21)
[2022-05-20] MEDS: FLUDROCORTISONE ACETATE 0.1MG TABLET PO SCH ×2 (08:21→17:36)
[2022-05-20] MEDS: LEVOTHYROXINE SODIUM 88MCG TABLET PO SCH (08:21)
[2022-05-20] MEDS: LACTOBACILLUS GG CAPSULE PO SCH (08:21)
[2022-05-20] MEDS: FOLIC ACID 1MG TABLET PO SCH (08:22)
[2022-05-20] MEDS ORDERED: MORPHINE SULFATE 2 MG/ML CPJ (NOT FOR IM USE) IV NR (10:00)
[2022-05-20] MEDS ORDERED: KCL 20MEQ/100ML PREMIX 100 ML IV ONE (10:00)
[2022-05-20] MEDS ORDERED: POTASSIUM CHLORIDE INJ 60 MEQ in DEXT 5% WATER 500 ML IV ONE (12:00)
[2022-05-20] MEDS ORDERED: POTASSIUM CHLORIDE INJ 40 MEQ in DEXT 5% WATER 250 ML IV ONE (12:00)
[2022-05-20] MEDS ORDERED: LOPERAMIDE HCL 2MG CAPSULE PO PRN (16:30)
[2022-05-20] MEDS ORDERED: LOPERAMIDE HCL 2MG CAPSULE PO NR (17:00)
[2022-05-20] MEDS ORDERED: DEXTROSE 10% WATER 500 ML IV ONE (17:30)
[2022-05-20] MEDS: DEXT 10% WATER 1,000 ML IV SCH (17:37)
[2022-05-20] MEDS: MICAFUNGIN 100 MG in SODIUM CHLORIDE 0.9% 100 ML IV SCH (17:37)
[2022-05-20] MEDS: VANCOMYCIN 750MG PREMIX 150 ML IV SCH (22:10)
[2022-05-21] VITALS (12 sets, daily range): BP systolic 82–98; BP diastolic 57–75
[2022-05-21] MEDS: METOCLOPRAMIDE HCL 10MG/2ML VIAL IV SCH ×4 (00:09→18:00)
[2022-05-21] MEDS: MEROPENEM 2,000 MG in SODIUM CHLORIDE 0.9% 100 ML IV SCH ×3 (05:19→21:43)
[2022-05-21] MEDS: POTASSIUM CHLORIDE INJ 40 MEQ in DEXT 5% WATER 250 ML IV SCH ×2 (08:15→11:30)
[2022-05-21] MEDS: LEVOTHYROXINE SODIUM 88MCG TABLET PO SCH (08:16)
[2022-05-21] MEDS: PYRIDOSTIGMINE BROMIDE 60MG TABLET PO SCH ×2 (08:16→17:00)
[2022-05-21] MEDS: FERROUS SULFATE 325MG TABLET PO SCH ×2 (08:16→17:00)
[2022-05-21] MEDS: FOLIC ACID 1MG TABLET PO SCH (08:16)
[2022-05-21] MEDS: MIDODRINE HCL 5MG TABLET PO SCH ×3 (08:16→17:00)
[2022-05-21] MEDS: FLUDROCORTISONE ACETATE 0.1MG TABLET PO SCH ×2 (08:16→17:00)
[2022-05-21] MEDS: POTASSIUM CHLORIDE 20MEQ TABLET SR PO SCH (08:17)
[2022-05-21] MEDS: THIAMINE HCL 100MG TABLET PO SCH (08:17)
[2022-05-21 09:42] LABS: BASOPHILS % 0.1 % (0.0-2.0); EOSINOPHILS % 0.1 % (0.0-5.0); HEMATOCRIT. 35.1 % (36.0-48.0); HEMOGLOBIN. 11.5 g/dL (12.0-16.0); LYMPHOCYTES % 21.5 % (20.0-50.0); MEAN CORPUSCULAR HEMOGLOBIN 27.9 pg (28.0-32.0); MEAN CORPUSCULAR VOLUME 85.1 fL (81.0-99.0); MEAN PLATELET VOLUME 8.8 fl (7.4-10.4); MONOCYTES % 7.1 % (2.0-8.0); NEUTROPHILS % 71.2 % (40.0-76.0); RED BLOOD CELL COUNT 4.12 mill/uL (4.2-5.4); RED CELL DISTRIBUTION WIDTH 22.8 % (11.6-14.6)
[2022-05-21] MEDS: LACTOBACILLUS GG CAPSULE PO SCH (09:47)
[2022-05-21] MEDS: VANCOMYCIN 750MG PREMIX 150 ML IV SCH (09:48)
[2022-05-21 09:50] LABS: CHLORIDE 116 mEq/L (98-107)
[2022-05-21 10:14] LABS: PLATELET ESTIMATE MARKEDLY DECREASED
[2022-05-21 10:15] LABS: PLATELET 46 x1000/uL (130-400)
[2022-05-21] MEDS ORDERED: LOPERAMIDE HCL 2MG CAPSULE PO NR (12:15)
[2022-05-21] MEDS: MICAFUNGIN 100 MG in SODIUM CHLORIDE 0.9% 100 ML IV SCH (17:13)
[2022-05-21] MEDS: MORPHINE SULFATE 2 MG/ML CPJ (NOT FOR IM USE) IV PRN (20:07)
[2022-05-22] VITALS (16 sets, daily range): BP systolic 78–99; BP diastolic 57–78
[2022-05-22] MEDS: DEXT 10% WATER 1,000 ML IV SCH (02:50)
[2022-05-22] MEDS: METOCLOPRAMIDE HCL 10MG/2ML VIAL IV SCH ×4 (05:27→17:11)
[2022-05-22] MEDS: MEROPENEM 2,000 MG in SODIUM CHLORIDE 0.9% 100 ML IV SCH ×3 (05:27→22:28)
[2022-05-22] MEDS: FOLIC ACID 1MG TABLET PO SCH (08:41)
[2022-05-22] MEDS: POTASSIUM CHLORIDE 20MEQ TABLET SR PO SCH (08:41)
[2022-05-22] MEDS: LEVOTHYROXINE SODIUM 88MCG TABLET PO SCH (08:41)
[2022-05-22] MEDS: THIAMINE HCL 100MG TABLET PO SCH (08:42)
[2022-05-22] MEDS: FLUDROCORTISONE ACETATE 0.1MG TABLET PO SCH ×2 (08:42→16:20)
[2022-05-22] MEDS: PYRIDOSTIGMINE BROMIDE 60MG TABLET PO SCH ×2 (08:42→16:21)
[2022-05-22] MEDS: MIDODRINE HCL 5MG TABLET PO SCH ×3 (08:42→16:20)
[2022-05-22] MEDS: LACTOBACILLUS GG CAPSULE PO SCH (08:55)
[2022-05-22] MEDS: FERROUS SULFATE 325MG TABLET PO SCH ×2 (09:00→16:20)
[2022-05-22] MEDS ORDERED: ALBUMIN HUMAN 25GM/100ML (25%) IV NR (10:00)
[2022-05-22] MEDS: VANCOMYCIN 500MG PREMIX 100 ML IV SCH (12:12)
[2022-05-22 15:39] LABS: BASOPHILS % 0.2 % (0.0-2.0); EOSINOPHILS % 0.1 % (0.0-5.0); HEMATOCRIT. 27.5 % (36.0-48.0); HEMOGLOBIN. 8.9 g/dL (12.0-16.0); MEAN CORPUSCULAR HEMOGLOBIN 27.8 pg (28.0-32.0); MEAN CORPUSCULAR VOLUME 85.7 fL (81.0-99.0); MEAN PLATELET VOLUME 8.8 fl (7.4-10.4); MONOCYTES % 5.6 % (2.0-8.0); NEUTROPHILS % 68.1 % (40.0-76.0); RED CELL DISTRIBUTION WIDTH 21.5 % (11.6-14.6)
[2022-05-22 15:51] LABS: INR 1.7; PARTIAL THROMBOPLASTIN TIME 50.9 sec (23.4-31.0); PROTHROMBIN TIME 17.9 sec (9.6-11.0)
[2022-05-22 16:00] LABS: PLATELET 27 x1000/uL (130-400)
[2022-05-22 16:07] LABS: CHLORIDE 115 mEq/L (98-107)
[2022-05-22] MEDS: MICAFUNGIN 100 MG in SODIUM CHLORIDE 0.9% 100 ML IV SCH (16:20)
[2022-05-22 16:31] LABS: PHOSPHORUS 1.5 mg/dL (2.5-4.9)
[2022-05-22] MEDS ORDERED: DEXTROSE 50% WATER 50ML SYRINGE IV PRN (21:00)
[2022-05-22] MEDS ORDERED: TOTAL PARENTERAL NUTRITION 1,600 ML IV SCH (21:00)
[2022-05-22] MEDS: BLOOD SUGAR DIAGNOSTIC STRIP TEST SCH (21:00)
[2022-05-22] MEDS: INSULIN LISPRO (LOW DOSE) 100 UNITS/ML SUBCUT SCH (21:00)
[2022-05-22] MEDS: FAT EMULSIONS 250 ML IV SCH (22:29)
[2022-05-22] MEDS ORDERED: MORPHINE SULFATE 2 MG/ML CPJ (NOT FOR IM USE) IV NR (23:45)
[2022-05-23] VITALS (15 sets, daily range): BP systolic 77–126; BP diastolic 31–89
[2022-05-23] MEDS: METOCLOPRAMIDE HCL 10MG/2ML VIAL IV SCH ×5 (00:34→17:43)
[2022-05-23] MEDS: BLOOD SUGAR DIAGNOSTIC STRIP TEST SCH ×4 (06:00→17:27)
[2022-05-23] MEDS: INSULIN LISPRO (LOW DOSE) 100 UNITS/ML SUBCUT SCH ×4 (06:00→17:42)
[2022-05-23] MEDS: MEROPENEM 2,000 MG in SODIUM CHLORIDE 0.9% 100 ML IV SCH ×3 (06:42→22:00)
[2022-05-23] MEDS: VANCOMYCIN 500MG PREMIX 100 ML IV SCH (06:42)
[2022-05-23] MEDS: PYRIDOSTIGMINE BROMIDE 60MG TABLET PO SCH ×2 (09:56→17:27)
[2022-05-23] MEDS: FOLIC ACID 1MG TABLET PO SCH (09:57)
[2022-05-23] MEDS: FERROUS SULFATE 325MG TABLET PO SCH ×2 (09:57→17:26)
[2022-05-23] MEDS: POTASSIUM CHLORIDE 20MEQ TABLET SR PO SCH (09:57)
[2022-05-23] MEDS: MIDODRINE HCL 5MG TABLET PO SCH ×3 (09:57→17:27)
[2022-05-23] MEDS: FLUDROCORTISONE ACETATE 0.1MG TABLET PO SCH ×2 (09:57→17:26)
[2022-05-23] MEDS: THIAMINE HCL 100MG TABLET PO SCH (09:57)
[2022-05-23] MEDS: HYDROMORPHONE HCL 2MG TABLET PO PRN ×2 (09:57→13:53)
[2022-05-23] MEDS: LEVOTHYROXINE SODIUM 88MCG TABLET PO SCH (10:01)
[2022-05-23] MEDS: LACTOBACILLUS GG CAPSULE PO SCH (10:01)
[2022-05-23] MEDS: DEXT 10% WATER 1,000 ML IV SCH (13:52)
[2022-05-23] MEDS: MICAFUNGIN 100 MG in SODIUM CHLORIDE 0.9% 100 ML IV SCH (17:27)
[2022-05-23] MEDS ORDERED: TOTAL PARENTERAL NUTRITION 1,600 ML IV SCH (21:00)
[2022-05-24] VITALS (14 sets, daily range): BP systolic 88–109; BP diastolic 58–89
[2022-05-24] MEDS: BLOOD SUGAR DIAGNOSTIC STRIP TEST SCH ×5 (00:07→23:53)
[2022-05-24] MEDS: VANCOMYCIN 500MG PREMIX 100 ML IV SCH ×2 (00:07→19:23)
[2022-05-24] MEDS ORDERED: SODIUM PHOS,M-BASIC-D-BASIC 20 MM in DEXT 5% WATER 243.3333 ML IV NR (01:00)
[2022-05-24] MEDS ORDERED: MAGNESIUM 2 G PREMIX 50 ML IV NR (01:00)
[2022-05-24] MEDS: INSULIN LISPRO (LOW DOSE) 100 UNITS/ML SUBCUT SCH ×4 (05:37→17:58)
[2022-05-24] MEDS: METOCLOPRAMIDE HCL 10MG/2ML VIAL IV SCH ×4 (05:37→17:45)
[2022-05-24] MEDS: MEROPENEM 2,000 MG in SODIUM CHLORIDE 0.9% 100 ML IV SCH ×4 (05:47→21:31)
[2022-05-24 07:32] LABS: CHLORIDE 113 mEq/L (98-107)
[2022-05-24 07:33] LABS: BASOPHILS % 0.2 % (0.0-2.0); EOSINOPHILS % 0.2 % (0.0-5.0); HEMATOCRIT. 30.1 % (36.0-48.0); HEMOGLOBIN. 9.7 g/dL (12.0-16.0); LYMPHOCYTES % 24.8 % (20.0-50.0); MEAN CORPUSCULAR HEMOGLOBIN 27.9 pg (28.0-32.0); MEAN CORPUSCULAR VOLUME 86.3 fL (81.0-99.0); MEAN PLATELET VOLUME 9.9 fl (7.4-10.4); MONOCYTES % 5.2 % (2.0-8.0); NEUTROPHILS % 69.6 % (40.0-76.0); RED BLOOD CELL COUNT 3.48 mill/uL (4.2-5.4); RED CELL DISTRIBUTION WIDTH 21.2 % (11.6-14.6)
[2022-05-24 07:41] LABS: PHOSPHORUS 2.7 mg/dL (2.5-4.9)
[2022-05-24 08:27] LABS: PLATELET 20 x1000/uL (130-400)
[2022-05-24] MEDS: THIAMINE HCL 100MG TABLET PO SCH (09:55)
[2022-05-24] MEDS: LEVOTHYROXINE SODIUM 88MCG TABLET PO SCH (09:56)
[2022-05-24] MEDS: FLUDROCORTISONE ACETATE 0.1MG TABLET PO SCH ×2 (09:56→17:14)
[2022-05-24] MEDS: PYRIDOSTIGMINE BROMIDE 60MG TABLET PO SCH ×2 (09:56→17:13)
[2022-05-24] MEDS: POTASSIUM CHLORIDE 20MEQ TABLET SR PO SCH (09:56)
[2022-05-24] MEDS: FERROUS SULFATE 325MG TABLET PO SCH ×2 (09:57→17:14)
[2022-05-24] MEDS: PHYTONADIONE 10MG/ML AMP SUBCUT SCH (09:57)
[2022-05-24] MEDS: MIDODRINE HCL 5MG TABLET PO SCH ×3 (09:57→17:14)
[2022-05-24] MEDS: LACTOBACILLUS GG CAPSULE PO SCH (09:57)
[2022-05-24] MEDS: FOLIC ACID 1MG TABLET PO SCH (09:57)
[2022-05-24] MEDS ORDERED: POTASSIUM CHLORIDE INJ 40 MEQ in DEXT 5% WATER 250 ML IV ONE (11:00)
[2022-05-24] MEDS: ONDANSETRON HCL 4MG/2ML INJ IV PRN (14:11)
[2022-05-24] MEDS: MICAFUNGIN 100 MG in SODIUM CHLORIDE 0.9% 100 ML IV SCH (17:14)
[2022-05-24] MEDS: HYDROMORPHONE HCL 2MG TABLET PO PRN (17:32)
[2022-05-24] MEDS ORDERED: TOTAL PARENTERAL NUTRITION 1,800 ML IV SCH (21:00)
[2022-05-24] MEDS ORDERED: TOTAL PARENTERAL NUTRITION 1,680 ML IV SCH (21:00)
[2022-05-24] MEDS: FAT EMULSIONS 250 ML IV SCH (21:31)
[2022-05-24] MEDS: POTASSIUM CHLORIDE INJ 40 MEQ in DEXT 5% WATER 250 ML IV SCH (21:31)
[2022-05-25] VITALS (20 sets, daily range): BP systolic 77–106; BP diastolic 38–82
[2022-05-25] MEDS: INSULIN LISPRO (LOW DOSE) 100 UNITS/ML SUBCUT SCH ×5 (00:05→23:28)
[2022-05-25] MEDS: METOCLOPRAMIDE HCL 10MG/2ML VIAL IV SCH ×5 (00:05→23:27)
[2022-05-25] MEDS: HYDROMORPHONE HCL 2MG TABLET PO PRN ×2 (00:20→23:48)
[2022-05-25] MEDS: MEROPENEM 2,000 MG in SODIUM CHLORIDE 0.9% 100 ML IV SCH ×3 (05:14→23:27)
[2022-05-25] MEDS: POTASSIUM CHLORIDE INJ 40 MEQ in DEXT 5% WATER 250 ML IV SCH ×2 (05:14→21:00)
[2022-05-25] MEDS: BLOOD SUGAR DIAGNOSTIC STRIP TEST SCH ×4 (06:50→23:26)
[2022-05-25 06:58] LABS: CHLORIDE 114 mEq/L (98-107)
[2022-05-25] MEDS: LEVOTHYROXINE SODIUM 88MCG TABLET PO SCH ×2 (07:30→08:21)
[2022-05-25 08:08] LABS: PHOSPHORUS 0.8 mg/dL (2.5-4.9)
[2022-05-25] MEDS: POTASSIUM CHLORIDE 20MEQ TABLET SR PO SCH (08:21)
[2022-05-25] MEDS: FERROUS SULFATE 325MG TABLET PO SCH ×2 (08:21→17:00)
[2022-05-25] MEDS: FOLIC ACID 1MG TABLET PO SCH (08:21)
[2022-05-25] MEDS: PYRIDOSTIGMINE BROMIDE 60MG TABLET PO SCH ×2 (08:21→17:00)
[2022-05-25] MEDS: LACTOBACILLUS GG CAPSULE PO SCH (08:21)
[2022-05-25] MEDS: FLUDROCORTISONE ACETATE 0.1MG TABLET PO SCH ×2 (08:22→17:00)
[2022-05-25] MEDS: MIDODRINE HCL 5MG TABLET PO SCH ×3 (08:22→17:00)
[2022-05-25] MEDS: THIAMINE HCL 100MG TABLET PO SCH (08:23)
[2022-05-25] MEDS ORDERED: POTASSIUM PHOS,M-BASIC-D-BASIC 20 MMOL in DEXT 5% WATER 243.3333 ML IV NR (10:00)
[2022-05-25] MEDS: ONDANSETRON HCL 4MG/2ML INJ IV PRN ×3 (11:57→21:10)
[2022-05-25] MEDS: VANCOMYCIN 500 MG in DEXT 5% WATER 100 ML IV SCH (12:00)
[2022-05-25] MEDS: MICAFUNGIN 100 MG in SODIUM CHLORIDE 0.9% 100 ML IV SCH (15:16)
[2022-05-25 18:01] LABS: BASOPHILS % 0.3 % (0.0-2.0); EOSINOPHILS % 0.1 % (0.0-5.0); HEMATOCRIT. 33.9 % (36.0-48.0); HEMOGLOBIN. 10.7 g/dL (12.0-16.0); LYMPHOCYTES % 14.7 % (20.0-50.0); MEAN CORPUSCULAR HEMOGLOBIN 27.3 pg (28.0-32.0); MEAN PLATELET VOLUME 10.6 fl (7.4-10.4); MONOCYTES % 8.4 % (2.0-8.0); NEUTROPHILS % 76.5 % (40.0-76.0); RED BLOOD CELL COUNT 3.94 mill/uL (4.2-5.4); RED CELL DISTRIBUTION WIDTH 21.2 % (11.6-14.6)
[2022-05-25 18:17] LABS: PLATELET 15 x1000/uL (130-400)
[2022-05-25 18:29] LABS: PHOSPHORUS 0.9 mg/dL (2.5-4.9)
[2022-05-25] MEDS: TOTAL PARENTERAL NUTRITION 1,200 ML IV SCH (21:52)
[2022-05-25] MEDS: INSULIN GLARGINE 100 UNITS/ML SUBCUT SCH (21:53)
[2022-05-26] VITALS (18 sets, daily range): BP systolic 77–101; BP diastolic 52–78
[2022-05-26] MEDS: VANCOMYCIN 500 MG in DEXT 5% WATER 100 ML IV SCH (05:05)
[2022-05-26] MEDS: METOCLOPRAMIDE HCL 10MG/2ML VIAL IV SCH ×3 (05:06→17:39)
[2022-05-26] MEDS: MEROPENEM 2,000 MG in SODIUM CHLORIDE 0.9% 100 ML IV SCH ×3 (05:17→22:15)
[2022-05-26] MEDS: LEVOTHYROXINE SODIUM 88MCG TABLET PO SCH (05:17)
[2022-05-26] MEDS: BLOOD SUGAR DIAGNOSTIC STRIP TEST SCH ×4 (05:17→23:46)
[2022-05-26] MEDS: INSULIN LISPRO (LOW DOSE) 100 UNITS/ML SUBCUT SCH ×4 (06:30→23:46)
[2022-05-26] MEDS: LACTOBACILLUS GG CAPSULE PO SCH (09:00)
[2022-05-26] MEDS: FLUDROCORTISONE ACETATE 0.1MG TABLET PO SCH ×2 (09:01→17:00)
[2022-05-26] MEDS: MIDODRINE HCL 5MG TABLET PO SCH ×3 (09:01→17:00)
[2022-05-26] MEDS: FERROUS SULFATE 325MG TABLET PO SCH ×2 (09:01→17:00)
[2022-05-26] MEDS: THIAMINE HCL 100MG TABLET PO SCH (09:01)
[2022-05-26] MEDS: PYRIDOSTIGMINE BROMIDE 60MG TABLET PO SCH ×2 (09:02→17:00)
[2022-05-26] MEDS: POTASSIUM CHLORIDE 20MEQ TABLET SR PO SCH (09:12)
[2022-05-26] MEDS: POTASSIUM CHLORIDE INJ 40 MEQ in DEXT 5% WATER 250 ML IV SCH ×2 (09:36→21:00)
[2022-05-26] MEDS: FOLIC ACID 1MG TABLET PO SCH (09:36)
[2022-05-26] MEDS: MICAFUNGIN 100 MG in SODIUM CHLORIDE 0.9% 100 ML IV SCH (16:59)
[2022-05-26] MEDS ORDERED: SODIUM CHLORIDE 0.9% 500 ML IV NR (20:15)
[2022-05-26 20:41] LABS: CHLORIDE 115 mEq/L (98-107)
[2022-05-26 20:42] LABS: BASOPHILS % 0.8 % (0.0-2.0); EOSINOPHILS % 0.2 % (0.0-5.0); HEMATOCRIT. 31.6 % (36.0-48.0); HEMOGLOBIN. 9.7 g/dL (12.0-16.0); LYMPHOCYTES % 19.6 % (20.0-50.0); MEAN CORPUSCULAR HEMOGLOBIN 27.7 pg (28.0-32.0); MEAN PLATELET VOLUME 10.2 fl (7.4-10.4); MONOCYTES % 13.6 % (2.0-8.0); NEUTROPHILS % 65.8 % (40.0-76.0); RED BLOOD CELL COUNT 3.51 mill/uL (4.2-5.4); RED CELL DISTRIBUTION WIDTH 21.4 % (11.6-14.6)
[2022-05-26 20:51] LABS: PLATELET 18 x1000/uL (130-400)
[2022-05-26 21:15] LABS: PHOSPHORUS 0.5 mg/dL (2.5-4.9)
[2022-05-26] MEDS ORDERED: SODIUM CHLORIDE 0.9% 500 ML IV ONE (21:15)
[2022-05-26] MEDS: INSULIN GLARGINE 100 UNITS/ML SUBCUT SCH (22:16)
[2022-05-26] MEDS: TOTAL PARENTERAL NUTRITION 1,200 ML IV SCH (22:17)
[2022-05-26] MEDS ORDERED: SODIUM PHOS,M-BASIC-D-BASIC 20 MM in DEXT 5% WATER 243.3333 ML IV NR (23:30)
[2022-05-27] VITALS (16 sets, daily range): BP systolic 82–117; BP diastolic 36–74
[2022-05-27] MEDS: METOCLOPRAMIDE HCL 10MG/2ML VIAL IV SCH ×5 (00:28→23:29)
[2022-05-27] MEDS: VANCOMYCIN 500 MG in DEXT 5% WATER 100 ML IV SCH ×2 (00:28→17:56)
[2022-05-27] MEDS: INSULIN LISPRO (LOW DOSE) 100 UNITS/ML SUBCUT SCH ×3 (05:19→23:19)
[2022-05-27] MEDS: BLOOD SUGAR DIAGNOSTIC STRIP TEST SCH ×3 (05:19→23:20)
[2022-05-27] MEDS: MEROPENEM 2,000 MG in SODIUM CHLORIDE 0.9% 100 ML IV SCH ×3 (05:20→22:00)
[2022-05-27] MEDS: LEVOTHYROXINE SODIUM 88MCG TABLET PO SCH (07:30)
[2022-05-27] MEDS: MIDODRINE HCL 5MG TABLET PO SCH ×3 (09:00→20:46)
[2022-05-27] MEDS: FERROUS SULFATE 325MG TABLET PO SCH ×2 (09:00→09:32)
[2022-05-27] MEDS: THIAMINE HCL 100MG TABLET PO SCH ×2 (09:18→09:33)
[2022-05-27] MEDS: FLUDROCORTISONE ACETATE 0.1MG TABLET PO SCH ×2 (09:18→19:01)
[2022-05-27] MEDS: LACTOBACILLUS GG CAPSULE PO SCH ×2 (09:18→09:33)
[2022-05-27] MEDS: PYRIDOSTIGMINE BROMIDE 60MG TABLET PO SCH ×2 (09:18→19:00)
[2022-05-27] MEDS: FOLIC ACID 1MG TABLET PO SCH ×2 (09:18→09:32)
[2022-05-27] MEDS: HYDROMORPHONE HCL 2MG TABLET PO PRN ×3 (09:30→20:45)
[2022-05-27] MEDS: PHYTONADIONE 10MG/ML AMP SUBCUT SCH (09:33)
[2022-05-27] MEDS: POTASSIUM CHLORIDE INJ 40 MEQ in DEXT 5% WATER 250 ML IV SCH (09:41)
[2022-05-27] MEDS: MICAFUNGIN 100 MG in SODIUM CHLORIDE 0.9% 100 ML IV SCH (17:56)
[2022-05-27] MEDS: FAT EMULSIONS 250 ML IV SCH (20:47)
[2022-05-27] MEDS ORDERED: TOTAL PARENTERAL NUTRITION 1,200 ML IV SCH (21:00)
[2022-05-27] MEDS: INSULIN GLARGINE 100 UNITS/ML SUBCUT SCH (22:00)
[2022-05-28] VITALS (13 sets, daily range): BP systolic 90–108; BP diastolic 45–78
[2022-05-28] MEDS ORDERED: DIGOXIN 500MCG/2ML AMP IV NR (02:45)
[2022-05-28] MEDS: INSULIN LISPRO (LOW DOSE) 100 UNITS/ML SUBCUT SCH ×4 (06:00→23:23)
[2022-05-28] MEDS: MEROPENEM 2,000 MG in SODIUM CHLORIDE 0.9% 100 ML IV SCH ×3 (06:49→21:50)
[2022-05-28] MEDS: METOCLOPRAMIDE HCL 10MG/2ML VIAL IV SCH (06:50)
[2022-05-28] MEDS: BLOOD SUGAR DIAGNOSTIC STRIP TEST SCH ×4 (06:55→23:22)
[2022-05-28] MEDS: LEVOTHYROXINE SODIUM 88MCG TABLET PO SCH (08:10)
[2022-05-28] MEDS: PYRIDOSTIGMINE BROMIDE 60MG TABLET PO SCH ×2 (08:10→17:35)
[2022-05-28] MEDS: FLUDROCORTISONE ACETATE 0.1MG TABLET PO SCH ×2 (08:12→17:00)
[2022-05-28] MEDS: MIDODRINE HCL 5MG TABLET PO SCH ×3 (08:13→17:00)
[2022-05-28] MEDS: FERROUS SULFATE 325MG TABLET PO SCH ×2 (08:13→17:00)
[2022-05-28] MEDS: HYDROMORPHONE HCL 2MG TABLET PO PRN ×2 (08:43→21:19)
[2022-05-28 08:59] LABS: HEMATOCRIT. 26.9 % (36.0-48.0); HEMOGLOBIN. 8.6 g/dL (12.0-16.0); MEAN CORPUSCULAR VOLUME 87.1 fL (81.0-99.0); RED BLOOD CELL COUNT 3.08 mill/uL (4.2-5.4); RED CELL DISTRIBUTION WIDTH 21.7 % (11.6-14.6)
[2022-05-28 09:22] LABS: CHLORIDE 114 mEq/L (98-107)
[2022-05-28 09:28] LABS: PHOSPHORUS 1.4 mg/dL (2.5-4.9)
[2022-05-28 11:45] LABS: MEAN PLATELET VOLUME 9.9 fl (7.4-10.4); PLATELET 26 x1000/uL (130-400)
[2022-05-28 11:50] LABS: PLATELET ESTIMATE MARKEDLY DECREASED
[2022-05-28] MEDS ORDERED: SODIUM PHOS,M-BASIC-D-BASIC 30 MM in DEXT 5% WATER 500 ML IV NR (12:00)
[2022-05-28] MEDS: VANCOMYCIN 500 MG in DEXT 5% WATER 100 ML IV SCH (12:26)
[2022-05-28] MEDS ORDERED: DIATR MEGLU/DIATRIZOATE SOLN 30ML PO SCH (13:30)
[2022-05-28] MEDS ORDERED: BARIUM SULFATE 450ML ORAL SUSP PO SCH (13:30)
[2022-05-28] MEDS: MICAFUNGIN 100 MG in SODIUM CHLORIDE 0.9% 100 ML IV SCH (15:03)
[2022-05-28] MEDS ORDERED: TOTAL PARENTERAL NUTRITION 1,200 ML IV SCH (21:00)
[2022-05-28] MEDS: INSULIN GLARGINE 100 UNITS/ML SUBCUT SCH (21:50)
[2022-05-29] VITALS (7 sets, daily range): BP systolic 92–107; BP diastolic 53–73
[2022-05-29] MEDS: VANCOMYCIN 500 MG in DEXT 5% WATER 100 ML IV SCH (05:58)
[2022-05-29] MEDS: MEROPENEM 2,000 MG in SODIUM CHLORIDE 0.9% 100 ML IV SCH ×2 (05:58→14:41)
[2022-05-29] MEDS: BLOOD SUGAR DIAGNOSTIC STRIP TEST SCH ×3 (05:58→17:41)
[2022-05-29] MEDS: INSULIN LISPRO (LOW DOSE) 100 UNITS/ML SUBCUT SCH ×3 (05:58→17:41)
[2022-05-29] MEDS: FLUDROCORTISONE ACETATE 0.1MG TABLET PO SCH ×2 (08:43→17:00)
[2022-05-29] MEDS: THIAMINE HCL 100MG TABLET PO SCH (08:43)
[2022-05-29] MEDS: PYRIDOSTIGMINE BROMIDE 60MG TABLET PO SCH ×2 (08:43→17:00)
[2022-05-29] MEDS: FOLIC ACID 1MG TABLET PO SCH (08:43)
[2022-05-29] MEDS: LEVOTHYROXINE SODIUM 88MCG TABLET PO SCH (08:43)
[2022-05-29] MEDS: MIDODRINE HCL 5MG TABLET PO SCH ×3 (08:43→17:00)
[2022-05-29] MEDS: LACTOBACILLUS GG CAPSULE PO SCH (08:43)
[2022-05-29] MEDS: FERROUS SULFATE 325MG TABLET PO SCH ×2 (08:43→17:00)
[2022-05-29] MEDS: MICAFUNGIN 100 MG in SODIUM CHLORIDE 0.9% 100 ML IV SCH (15:08)
[2022-05-29] MEDS: HYDROMORPHONE HCL 2MG TABLET PO PRN (16:28)
[2023-05-22] MEDS ORDERED: DOBUTAMINE 250MG PREMIX 250 ML IV PRN (08:47)
== END 2022-05-29 19:25 | disposition home health service (06) | DRG 871 ==
LOC: ER 06:30 → MICUSO 09:13 → EDBEDREQ 09:21 → EDBEDREQTM 09:21 → EDBEDREQSVC 11:53 → ENRESERV 12:20 → 5EST 05-16 11:50
PROVIDERS: ADMIT Internal Medicine Geriatric Medicine; ATTEND Internal Medicine Geriatric Medicine
PROC: 02HV33Z Insertion of Infusion Device into Superior Vena Cava, Percutaneous Approach (ICD-10-PCS; principal; 2022-05-03)
PROC: B548ZZA Ultrasonography of Superior Vena Cava, Guidance (ICD-10-PCS; 2022-05-03)
PROC: 30233N1 Transfusion of Nonautologous Red Blood Cells into Peripheral Vein, Percutaneous Approach (ICD-10-PCS; 2022-05-04)
PROC: 0W9G30Z Drainage of Peritoneal Cavity with Drainage Device, Percutaneous Approach (ICD-10-PCS; 2022-05-07)
PROC: 30233R1 Transfusion of Nonautologous Platelets into Peripheral Vein, Percutaneous Approach (ICD-10-PCS; 2022-05-08)
PROC: 06H03DZ Insertion of Intraluminal Device into Inferior Vena Cava, Percutaneous Approach (ICD-10-PCS; 2022-05-10)
PROC: B5191ZA Fluoroscopy of Inferior Vena Cava using Low Osmolar Contrast, Guidance (ICD-10-PCS; 2022-05-10)
PROC: B549ZZA Ultrasonography of Inferior Vena Cava, Guidance (ICD-10-PCS; 2022-05-10)
PROC: 0W2GX0Z Change Drainage Device in Peritoneal Cavity, External Approach (ICD-10-PCS; 2022-05-16)
DX: A41.9 Sepsis, unspecified organism (principal); D65 Disseminated intravascular coagulation [defibrination syndrome]; E43 Unspecified severe protein-calorie malnutrition; R65.21 Severe sepsis with septic shock; G92.8 Other toxic encephalopathy; K65.1 Peritoneal abscess; K65.9 Peritonitis, unspecified; I33.9 Acute and subacute endocarditis, unspecified; B17.9 Acute viral hepatitis, unspecified; D61.818 Other pancytopenia; N17.9 Acute kidney failure, unspecified; D68.59 Other primary thrombophilia; I42.9 Cardiomyopathy, unspecified; K56.7 Ileus, unspecified; I82.412 Acute embolism and thrombosis of left femoral vein; K80.00 Calculus of gallbladder with acute cholecystitis without obstruction; R18.8 Other ascites; J90 Pleural effusion, not elsewhere classified; C78.7 Secondary malignant neoplasm of liver and intrahepatic bile duct; C18.2 Malignant neoplasm of ascending colon; E87.2 Acidosis; Z16.12 Extended spectrum beta lactamase (ESBL) resistance; C78.00 Secondary malignant neoplasm of unspecified lung; E86.0 Dehydration; D50.9 Iron deficiency anemia, unspecified; D63.8 Anemia in other chronic diseases classified elsewhere; E16.2 Hypoglycemia, unspecified; E83.39 Other disorders of phosphorus metabolism; K86.89 Other specified diseases of pancreas; B96.20 Unspecified Escherichia coli [E. coli] as the cause of diseases classified elsewhere; M79.18 Myalgia, other site; N61.0 Mastitis without abscess; E83.42 Hypomagnesemia; E87.6 Hypokalemia; F17.200 Nicotine dependence, unspecified, uncomplicated; I08.1 Rheumatic disorders of both mitral and tricuspid valves; Z20.822 Contact with and (suspected) exposure to COVID-19; I10 Essential (primary) hypertension; Z90.49 Acquired absence of other specified parts of digestive tract; Z92.21 Personal history of antineoplastic chemotherapy; Z68.22 Body mass index [BMI] 22.0-22.9, adult
CPT/HCPCS: 10030; 36415; 36430; 36573; 36600; 37191; 71045; 74176; 74177; 76705; 80048; 80053; 80061; 80076; 80202; 81003; 82040; 82105; 82270; 82375; 82378; 82465; 82533; 82550; 82553; 82607; 82728; 82746; 82805; 82962; 83036; 83540; 83550; 83605; 83735; 83880; 84100; 84132; 84134; 84145; 84439; 84443; 84478; 84484; 85014; 85018; 85025; 85044; 85049; 85379; 85384; 86301; 86850; 86900; 86920; 87015; 87045; 87075; 87077; 87186; 87426; 87427; 87449; 89055; 93005; 93306; 93970; 97161; 97162; 97530; 99291; C1725; C1729; C1760; C1769; C1880; J0692; J1160; J1200; J1450; J1815; J2185; J2248; J2270; J2405; J2543; J2765; J3370; J3430; J3475; J3480; J3490; J7030; J7042; J7050; J7060; J7070; P9016; P9034; P9047; Q9963; Q9967; P9035; P9036

== ENCOUNTER 2022-07-08 11:24 | Inpatient (IN) | payer BC ==
[~2022-07-08] VITALS: Ht 162.6 cm; Wt 70.9 kg
[2022-07-08 15:03] LABS: CHLORIDE 108 mEq/L (98-107)
[2022-07-08] MEDS ORDERED: OXYCODONE HCL/ACETAMINOPHEN 5/325MG TABLET PO ONE (15:45)
[2022-07-08] MEDS ORDERED: METRONIDAZOLE XX SCH (16:15)
[2022-07-08] MEDS ORDERED: CEFEPIME 1 GM XX SCH (16:15)
[2022-07-08] MEDS ORDERED: DIATR MEGLU/DIATRIZOATE SOLN 30ML PO SCH (16:15)
[2022-07-08] MEDS ORDERED: ACETAMINOPHEN 325MG TABLET PO PRN (16:30)
[2022-07-08] MEDS ORDERED: IPRATROPIUM/ALBUTEROL 0.5-3(2.5)MG/3ML NEB HHN PRN (16:30)
[2022-07-08] MEDS ORDERED: ENOXAPARIN 40MG/0.4ML SYR SUBCUT SCH (16:30)
[2022-07-08 17:05] LABS: MEAN CORPUSCULAR HEMOGLOBIN 29.4 pg (28.0-32.0); MEAN CORPUSCULAR VOLUME 94.4 fL (81.0-99.0); MEAN PLATELET VOLUME 9.2 fl (7.4-10.4); PLATELET 178 x1000/uL (130-400); RED BLOOD CELL COUNT 2.19 mill/uL (4.2-5.4); RED CELL DISTRIBUTION WIDTH 15.8 % (11.6-14.6)
[2022-07-08] MEDS: CEFEPIME 1,000 MG in DEXTROSE 5% WATER 50 ML IV SCH (17:08)
[2022-07-08 17:22] LABS: HEMOGLOBIN. 6.4 g/dL (12.0-16.0)
[2022-07-08 17:23] LABS: HEMATOCRIT. 20.7 % (36.0-48.0)
[2022-07-08] MEDS: METRONIDAZOLE 500MG PREMIX 100ML IV SCH (17:50)
[2022-07-08] MEDS: DEXT 5%/0.9% NACL 1,000 ML IV SCH (17:57)
[2022-07-08] MEDS: ONDANSETRON HCL 4MG/2ML INJ IV PRN ×2 (17:58→17:59)
[2022-07-08] MEDS: PANTOPRAZOLE SODIUM 40 MG/VIAL IV SCH (17:58)
[2022-07-08] MEDS: MIDODRINE HCL 2.5MG TABLET PO SCH (18:29)
[2022-07-08 18:56] LABS: INR 1.4; PROTHROMBIN TIME 14.3 sec (9.6-11.0)
[2022-07-08 19:49] LABS: PLATELET ESTIMATE NORMAL
[2022-07-08 23:30] VITALS: BP 86/49
[2022-07-09] VITALS (24 sets, daily range): BP systolic 66–100; BP diastolic 46–65
[2022-07-09] MEDS: ZOLPIDEM TARTRATE 5MG TABLET PO PRN (00:05)
[2022-07-09] MEDS: HYDROMORPHONE HCL/PF 2MG/ML CPJ IV PRN ×2 (00:06→05:14)
[2022-07-09] MEDS: ONDANSETRON HCL 4MG/2ML INJ IV PRN ×2 (00:14→09:52)
[2022-07-09] MEDS ORDERED: POTA20LI52 PO (01:04)
[2022-07-09] MEDS ORDERED: METO2.5T2 PO (01:04)
[2022-07-09] MEDS ORDERED: POTA-10 PO (01:04)
[2022-07-09] MEDS ORDERED: MIDO2.5T PO (01:04)
[2022-07-09] MEDS ORDERED: ONDA4TAB50 PO (01:04)
[2022-07-09] MEDS ORDERED: HYDR2TAB7 PO (01:04)
[2022-07-09] MEDS ORDERED: FURO20TA4 PO (01:04)
[2022-07-09] MEDS ORDERED: LEVO88TA7 PO (01:04)
[2022-07-09] MEDS: METRONIDAZOLE 500MG PREMIX 100ML IV SCH (05:00)
[2022-07-09] MEDS ORDERED: ALBUMIN HUMAN 25GM/100ML (25%) IV NR (07:00)
[2022-07-09] MEDS: LEVOTHYROXINE SODIUM 88MCG TABLET PO SCH (07:40)
[2022-07-09] MEDS: BLOOD SUGAR DIAGNOSTIC STRIP TEST SCH ×3 (07:40→17:59)
[2022-07-09] MEDS: CEFEPIME 1,000 MG in DEXTROSE 5% WATER 50 ML IV SCH (09:13)
[2022-07-09] MEDS: INSULIN LISPRO 100 UNITS/ML SUBCUT SCH ×4 (09:16→21:00)
[2022-07-09] MEDS: PANTOPRAZOLE SODIUM 40 MG/VIAL IV SCH (09:51)
[2022-07-09] MEDS: MIDODRINE HCL 2.5MG TABLET PO SCH (09:52)
[2022-07-09] MEDS: DEXT 5%/0.9% NACL 1,000 ML IV SCH (11:10)
[2022-07-09] MEDS ORDERED: MIDODRINE HCL 2.5MG TABLET PO SCH (13:00)
[2022-07-09 13:22] LABS: HEMATOCRIT. 25.6 % (36.0-48.0); HEMOGLOBIN. 8.4 g/dL (12.0-16.0); MEAN CORPUSCULAR HEMOGLOBIN 29.8 pg (28.0-32.0); MEAN CORPUSCULAR VOLUME 90.5 fL (81.0-99.0); MEAN PLATELET VOLUME 9.2 fl (7.4-10.4); PLATELET 227 x1000/uL (130-400); RED BLOOD CELL COUNT 2.83 mill/uL (4.2-5.4); RED CELL DISTRIBUTION WIDTH 15.1 % (11.6-14.6)
[2022-07-09 13:25] LABS: INR 1.5; PROTHROMBIN TIME 15.2 sec (9.6-11.0)
[2022-07-09 13:40] LABS: CHLORIDE 111 mEq/L (98-107)
[2022-07-09] MEDS: DEXTROSE 50% WATER 50ML SYRINGE IV PRN ×4 (13:56→18:18)
[2022-07-09] MEDS ORDERED: IOHEXOL-300 100 ML BOTTLE ONE (14:33)
[2022-07-09] MEDS ORDERED: SODIUM CHLORIDE 0.9% 500 ML IV NR (15:30)
[2022-07-09] MEDS ORDERED: NALOXONE HCL 0.4MG/ML VIAL IV PRN (16:30)
[2022-07-09] MEDS: MEROPENEM 1,000 MG in SODIUM CHLORIDE 0.9% 100 ML IV SCH (16:49)
[2022-07-09] MEDS: FLUCONAZOLE 400MG/200ML BAG 200 ML IV SCH (17:00)
[2022-07-09 17:01] LABS: PLATELET ESTIMATE NORMAL
[2022-07-09] MEDS: MIDODRINE HCL 5MG TABLET PO SCH (17:30)
[2022-07-09] MEDS: FAT EMULSIONS 20% 100 ML IV SCH (20:57)
[2022-07-09] MEDS: TOTAL PARENTERAL NUTRITION IV SCH (21:00)
[2022-07-10] VITALS (12 sets, daily range): BP systolic 75–103; BP diastolic 55–70
[2022-07-10] MEDS: MEROPENEM 1,000 MG in SODIUM CHLORIDE 0.9% 100 ML IV SCH ×3 (00:22→17:28)
[2022-07-10] MEDS: DEXTROSE 50% WATER 50ML SYRINGE IV PRN ×3 (00:35→23:05)
[2022-07-10] MEDS: BLOOD SUGAR DIAGNOSTIC STRIP TEST SCH ×4 (00:36→18:23)
[2022-07-10] MEDS: DEXT 10% WATER 1,000 ML IV SCH ×2 (02:20→14:50)
[2022-07-10] MEDS: ONDANSETRON HCL 4MG/2ML INJ IV PRN (02:39)
[2022-07-10 06:47] LABS: HEMATOCRIT. 24.9 % (36.0-48.0); HEMOGLOBIN. 8.4 g/dL (12.0-16.0); MEAN CORPUSCULAR HEMOGLOBIN 30.4 pg (28.0-32.0); MEAN CORPUSCULAR VOLUME 90.3 fL (81.0-99.0); MEAN PLATELET VOLUME 9.4 fl (7.4-10.4); PLATELET 216 x1000/uL (130-400); RED BLOOD CELL COUNT 2.76 mill/uL (4.2-5.4); RED CELL DISTRIBUTION WIDTH 15.3 % (11.6-14.6)
[2022-07-10] MEDS: LEVOTHYROXINE SODIUM 88MCG TABLET PO SCH (07:30)
[2022-07-10 07:50] LABS: CHLORIDE 108 mEq/L (98-107)
[2022-07-10 07:54] LABS: PHOSPHORUS 3.7 mg/dL (2.5-4.9)
[2022-07-10] MEDS: INSULIN LISPRO 100 UNITS/ML SUBCUT SCH ×3 (08:00→18:00)
[2022-07-10] MEDS ORDERED: ALBUMIN HUMAN 25GM/100ML (25%) IV NR (08:00)
[2022-07-10 08:02] LABS: INR 1.5; PROTHROMBIN TIME 15.9 sec (9.6-11.0)
[2022-07-10] MEDS: MIDODRINE HCL 5MG TABLET PO SCH ×3 (09:31→17:28)
[2022-07-10] MEDS: PANTOPRAZOLE SODIUM 40 MG/VIAL IV SCH (09:31)
[2022-07-10] MEDS ORDERED: POTASSIUM CHLORIDE 20MEQ/PACKET PO NR (09:45)
[2022-07-10] MEDS: HYDROMORPHONE HCL/PF 2MG/ML CPJ IV PRN ×3 (10:05→21:34)
[2022-07-10] MEDS ORDERED: FENTANYL CITRATE/PF 50MCG/ML 2ML VIAL ONE (10:15)
[2022-07-10] MEDS ORDERED: LIDOCAINE HCL 1% 50ML VIAL (10MG/ML) ONE (10:15)
[2022-07-10] MEDS ORDERED: MIDO5TAB4 PO (11:11)
[2022-07-10] MEDS ORDERED: SULF1TAB48 MT (11:12)
[2022-07-10] MEDS ORDERED: AMOX1TAB16 MT (11:12)
[2022-07-10] MEDS: POTASSIUM CHLORIDE 20MEQ TABLET SR PO NR ×2 (15:00→17:28)
[2022-07-10] MEDS: FLUCONAZOLE 400MG/200ML BAG 200 ML IV SCH (17:00)
[2022-07-10 17:31] LABS: PLATELET ESTIMATE NORMAL
[2022-07-10] MEDS: FAT EMULSIONS 20% 100 ML IV SCH (21:04)
[2022-07-10] MEDS: TOTAL PARENTERAL NUTRITION IV SCH (21:12)
[2022-07-10] MEDS: HYDROMORPHONE HCL 2MG TABLET PO PRN (22:44)
[2022-07-10] MEDS: ZOLPIDEM TARTRATE 5MG TABLET PO PRN (22:51)
[2022-07-11] VITALS (16 sets, daily range): BP systolic 93–110; BP diastolic 56–75
[2022-07-11] MEDS: MEROPENEM 1,000 MG in SODIUM CHLORIDE 0.9% 100 ML IV SCH ×4 (00:08→23:36)
[2022-07-11] MEDS: BLOOD SUGAR DIAGNOSTIC STRIP TEST SCH ×5 (00:08→23:31)
[2022-07-11] MEDS: HYDROMORPHONE HCL/PF 2MG/ML CPJ IV PRN ×3 (01:48→08:41)
[2022-07-11] MEDS: DEXT 10% WATER 1,000 ML IV SCH ×2 (05:13→18:48)
[2022-07-11] MEDS: INSULIN LISPRO 100 UNITS/ML SUBCUT SCH ×5 (05:13→23:33)
[2022-07-11] MEDS ORDERED: LIDOCAINE HCL 1% 50ML VIAL (10MG/ML) ONE (07:04)
[2022-07-11 07:10] LABS: HEMATOCRIT. 25.9 % (36.0-48.0); HEMOGLOBIN. 8.4 g/dL (12.0-16.0); MEAN CORPUSCULAR HEMOGLOBIN 29.6 pg (28.0-32.0); MEAN CORPUSCULAR VOLUME 91.2 fL (81.0-99.0); MEAN PLATELET VOLUME 9.2 fl (7.4-10.4); PLATELET 183 x1000/uL (130-400); RED BLOOD CELL COUNT 2.83 mill/uL (4.2-5.4); RED CELL DISTRIBUTION WIDTH 15.4 % (11.6-14.6)
[2022-07-11 07:11] LABS: INR 1.7; PROTHROMBIN TIME 17.2 sec (9.6-11.0)
[2022-07-11] MEDS: LEVOTHYROXINE SODIUM 88MCG TABLET PO SCH (07:30)
[2022-07-11] MEDS: PANTOPRAZOLE SODIUM 40 MG/VIAL IV SCH (08:38)
[2022-07-11] MEDS: ALBUMIN HUMAN 25GM/100ML (25%) IV NR (08:38)
[2022-07-11] MEDS: MIDODRINE HCL 5MG TABLET PO SCH ×4 (09:00→18:41)
[2022-07-11] MEDS ORDERED: TOTAL PARENTERAL NUTRITION 1,200 ML IV SCH ×2 (10:30→21:00)
[2022-07-11] MEDS: FLUCONAZOLE 400MG/200ML BAG 200 ML IV SCH (17:13)
[2022-07-11] MEDS: FAT EMULSIONS 20% 100 ML IV SCH (21:20)
[2022-07-11] MEDS: MORPHINE SULFATE 2 MG/ML CPJ (NOT FOR IM USE) IV PRN (22:33)
[2022-07-12] VITALS (11 sets, daily range): BP systolic 20–133; BP diastolic 51–100
[2022-07-12] MEDS: MORPHINE SULFATE 2 MG/ML CPJ (NOT FOR IM USE) IV PRN (02:08)
[2022-07-12] MEDS: ONDANSETRON HCL 4MG/2ML INJ IV PRN (02:22)
[2022-07-12] MEDS ORDERED: FUROSEMIDE 20MG/2ML VIAL IVP NR (05:00)
[2022-07-12] MEDS: BLOOD SUGAR DIAGNOSTIC STRIP TEST SCH (05:54)
[2022-07-12] MEDS: INSULIN LISPRO 100 UNITS/ML SUBCUT SCH (06:00)
[2022-07-12] MEDS: ALBUMIN HUMAN 25GM/100ML (25%) IV NR (08:00)
[2022-07-12] MEDS: HYDROMORPHONE HCL 2MG TABLET PO PRN (09:15)
[2022-07-12] MEDS: LEVOTHYROXINE SODIUM 88MCG TABLET PO SCH (09:15)
[2022-07-12] MEDS: MEROPENEM 1,000 MG in SODIUM CHLORIDE 0.9% 100 ML IV SCH (09:16)
[2022-07-12] MEDS: PANTOPRAZOLE SODIUM 40 MG/VIAL IV SCH (09:16)
[2022-07-12] MEDS: MIDODRINE HCL 5MG TABLET PO SCH (09:16)
[2022-07-12 10:24] LABS: PLATELET ESTIMATE NORMAL
[2022-07-13] MEDS ORDERED: BLOOD SUGAR DIAGNOSTIC STRIP TEST SCH (09:00)
[2022-07-15] MEDS ORDERED: PHYTONADIONE 10MG/ML AMP SUBCUT SCH (09:00)
== END 2022-07-12 11:55 | disposition home health service (06) | DRG 871 ==
LOC: ER 11:24 → 7WST 14:19 → EDBEDREQ 14:21 → EDBEDREQTM 14:21 → 5EST 07-09 09:02
PROVIDERS: ADMIT Internal Medicine Pulmonary Disease; ATTEND Internal Medicine Pulmonary Disease
PROC: 30233N1 Transfusion of Nonautologous Red Blood Cells into Peripheral Vein, Percutaneous Approach (ICD-10-PCS; 2022-07-09)
PROC: 0W9F3ZZ Drainage of Abdominal Wall, Percutaneous Approach (ICD-10-PCS; principal; 2022-07-11)
PROC: 0F903ZZ Drainage of Liver, Percutaneous Approach (ICD-10-PCS; 2022-07-11)
PROC: 0W9G3ZZ Drainage of Peritoneal Cavity, Percutaneous Approach (ICD-10-PCS; 2022-07-11)
DX: A41.9 Sepsis, unspecified organism (principal); E43 Unspecified severe protein-calorie malnutrition; R65.21 Severe sepsis with septic shock; K65.1 Peritoneal abscess; R18.8 Other ascites; C18.9 Malignant neoplasm of colon, unspecified; C78.7 Secondary malignant neoplasm of liver and intrahepatic bile duct; K63.2 Fistula of intestine; E87.8 Other disorders of electrolyte and fluid balance, not elsewhere classified; E88.09 Other disorders of plasma-protein metabolism, not elsewhere classified; R62.7 Adult failure to thrive; D64.9 Anemia, unspecified; B96.20 Unspecified Escherichia coli [E. coli] as the cause of diseases classified elsewhere; E03.9 Hypothyroidism, unspecified; E11.649 Type 2 diabetes mellitus with hypoglycemia without coma; Z20.822 Contact with and (suspected) exposure to COVID-19; E87.6 Hypokalemia; I07.1 Rheumatic tricuspid insufficiency; Z79.4 Long term (current) use of insulin; Z86.718 Personal history of other venous thrombosis and embolism; Z90.49 Acquired absence of other specified parts of digestive tract; Z93.3 Colostomy status; Z95.828 Presence of other vascular implants and grafts; Z68.26 Body mass index [BMI] 26.0-26.9, adult
CPT/HCPCS: 10030; 36415; 49083; 71045; 74022; 74177; 80048; 80053; 82533; 82962; 83036; 83605; 83735; 84100; 84478; 85025; 85384; 86850; 86900; 86920; 87186; 87426; 93005; 93306; 94640; 99285; A6261; C1729; C1769; C1887; C9113; C9803; J0692; J1170; J1450; J1940; J2185; J2270; J2405; J3010; J3490; J7050; J7060; P9016; P9047; Q9963; Q9967